=== PATIENT | male | born 1965 | race Caucasian/White ===

== ENCOUNTER 2020-12-31 11:12 | Observation (INO) | payer BC ==
[2020-12-31] MEDS ORDERED: ONDANSETRON 4 MG/2 ML VIAL IVP STA (11:32)
[2020-12-31] MEDS ORDERED: MORPHINE SULFATE 2 MG/ML SYRINGE IVP STA (11:32)
--- NOTE | 2020-12-31 11:32 | ED ---
General Adult HPI - General Chief complaint: Chest Pain Stated complaint: chest pain Time Seen by Provider: 12/31/20 11:12 Source: patient, RN notes reviewed, old records reviewed Mode of arrival: ambulatory Limitations: no limitations - History of Present Illness Initial comments: This is a 55-year-old male who states he has no past medical history. Patient takes no pills rising. Patient states he is a smoker. Patient comes in today because he started having significant left-sided chest pain. Patient states it occurred once about a week ago but it wasn't as bad as it is today. Patient states it started today and it was quite severe it felt like his chest is being squeezed and then radiating down into his abdomen. Patient denies any shortness of breath but he was very diaphoretic when EMS arrived. Patient states he is also extremely nauseated. Patient denies any injury or trauma. Patient denies lightheadedness or dizziness. Patient denies any extremity weakness or numbness. Patient denies headache. - Related Data Home Medications Medication Instructions Recorded Confirmed Ibuprofen [Advil] 400 mg PO Q8HR PRN 12/31/20 12/31/20 Allergies Allergy/AdvReac Type Severity Reaction Status Date / Time No Known Allergies Allergy Verified 12/31/20 12:12 Review of Systems ROS Statement: Those systems with pertinent positive or pertinent negative responses have been documented in the HPI. ROS Other: All systems not noted in ROS Statement are negative. Past Medical History Past Medical History: No Reported History Additional Past Medical History / Comment(s): hx kidney stone, irregular bowel movements, told BP high but no rx History of Any Multi-Drug Resistant Organisms: None Reported Past Surgical History: Orthopedic Surgery Additional Past Surgical History / Comment(s): tendon repair rt arm, arthroscopic knee Past Anesthesia/Blood Transfusion Reactions: No Reported Reaction Past Psychological History: No Psychological Hx Reported Past Alcohol Use History: Occasional Past Drug Use History: None Reported General Exam - General Exam Comments Initial Comments: GENERAL: Patient is well-developed and well-nourished. Patient is nontoxic and well- hydrated and is in mild distress. Patient is diaphoretic ENT: Neck is soft and supple. No significant lymphadenopathy is noted. Oropharynx is clear. Moist mucous membranes. Neck has full range of motion without eliciting any pain. EYES: The sclera were anicteric and conjunctiva were pink and moist. Extraocular movements were intact and pupils were equal round and reactive to light. Eyelids were unremarkable. PULMONARY: Unlabored respirations. Good breath sounds bilaterally. No audible rales rhonchi or wheezing was noted. CARDIOVASCULAR: There is a regular rate and rhythm without any murmurs gallops or rubs. Patient's radial pulse in the left is bounding however the right is very faint ABDOMEN: Patient has slight left lower quadrant abdominal tenderness. No palpable masses noted. No rebound or guarding SKIN: Skin is clear with no lesions or rashes and otherwise unremarkable. NEUROLOGIC: Patient is alert and oriented x3. Cranial nerves II through XII are grossly intact. Motor and sensory are also intact. Normal speech, volume and content. Symmetrical smile. MUSCULOSKELETAL: Normal extremities with adequate strength and full range of motion. No lower extremity swelling or edema. No calf tenderness. LYMPHATICS: No significant lymphadenopathy is noted PSYCHIATRIC: Normal psychiatric evaluation. Limitations: no limitations Course Vital Signs 12/31/20 11:13 Temperature 97.8 F Pulse Rate 59 L Respiratory 22 Rate Blood Pressure 132/82 O2 Sat by Pulse 98 Oximetry Medical Decision Making - Medical Decision Making EKG shows sinus bradycardia [address] interval 164 QRS is 94 QT interval is 454 QTC is 420. Patient has no ST segment elevation. Patient does have slight depression in lead 3 CT of the chest and abdomen to rule out aortic issues was showed no acute abnormalities. I spoke with Dr. William he agreed to admit the patient admitted the patient wrote admitting orders. - Lab Data Result diagrams: 12/31/20 11:32 12/31/20 11:32 Lab Results 12/31/20 12/31/20 12/31/20 Range/Units 11:32 11:32 11:32 WBC 9.3 (3.8-10.6) k/uL RBC 4.97 (4.30-5.90) m/uL Hgb 15.6 (13.0-17.5) gm/dL Hct 45.4 (39.0-53.0) % MCV 91.3 (80.0-100.0) fL MCH 31.3 (25.0-35.0) pg MCHC 34.3 (31.0-37.0) g/dL RDW 13.1 (11.5-15.5) % Plt Count 383 (150-450) k/uL MPV 6.3 Neutrophils % 65 % Lymphocytes % 27 % Monocytes % 3 % Eosinophils % 1 % Basophils % 1 % Neutrophils # 6.0 (1.3-7.7) k/uL Lymphocytes # 2.5 (1.0-4.8) k/uL Monocytes # 0.3 (0-1.0) k/uL Eosinophils # 0.1 (0-0.7) k/uL Basophils # 0.0 (0-0.2) k/uL PT 10.4 (9.0-12.0) sec INR 1.0 (<1.2) APTT 24.0 (22.0-30.0) sec D-Dimer 0.38 (<0.60) mg/L FEU Sodium 137 (137-145) mmol/L Potassium 4.3 (3.5-5.1) mmol/L Chloride 105 (98-107) mmol/L Carbon Dioxide 21 L (22-30) mmol/L Anion Gap 11 mmol/L BUN 17 (9-20) mg/dL Creatinine 0.73 (0.66-1.25) mg/dL Est GFR (CKD-EPI)AfAm >90 (>60 ml/min/1.73 sqM) Est GFR (CKD-EPI)NonAf >90 (>60 ml/min/1.73 sqM) Glucose 138 H (74-99) mg/dL Calcium 9.7 (8.4-10.2) mg/dL Magnesium 1.9 (1.6-2.3) mg/dL Total Bilirubin 0.7 (0.2-1.3) mg/dL AST 26 (17-59) U/L ALT 21 (4-49) U/L Alkaline Phosphatase 81 (38-126) U/L Troponin I (0.000-0.034) ng/mL NT-Pro-B Natriuret Pep pg/mL Total Protein 7.5 (6.3-8.2) g/dL Albumin 4.6 (3.5-5.0) g/dL Urine Color Urine Appearance (Clear) Urine pH (5.0-8.0) Ur Specific [place] (1.001-1.035) Urine Protein (Negative) Urine Glucose (UA) (Negative) Urine Ketones (Negative) Urine Blood (Negative) Urine Nitrite (Negative) Urine Bilirubin (Negative) Urine Urobilinogen (<2.0) mg/dL Ur Leukocyte Esterase (Negative) Urine Opiates Screen (NotDetected) Ur Oxycodone Screen (NotDetected) Urine Methadone Screen (NotDetected) Ur Propoxyphene Screen (NotDetected) Ur Barbiturates Screen (NotDetected) U Tricyclic Antidepress (NotDetected) Ur Phencyclidine Scrn (NotDetected) Ur Amphetamines Screen (NotDetected) U Methamphetamines Scrn (NotDetected) U Benzodiazepines Scrn (NotDetected) Urine Cocaine Screen (NotDetected) U Marijuana (THC) Screen (NotDetected) 12/31/20 12/31/20 12/31/20 Range/Units 11:32 11:32 12:27 WBC (3.8-10.6) k/uL RBC (4.30-5.90) m/uL Hgb (13.0-17.5) gm/dL Hct (39.0-53.0) % MCV (80.0-100.0) fL MCH (25.0-35.0) pg MCHC (31.0-37.0) g/dL RDW (11.5-15.5) % Plt Count (150-450) k/uL MPV Neutrophils % % Lymphocytes % % Monocytes % % Eosinophils % % Basophils % % Neutrophils # (1.3-7.7) k/uL Lymphocytes # (1.0-4.8) k/uL Monocytes # (0-1.0) k/uL Eosinophils # (0-0.7) k/uL Basophils # (0-0.2) k/uL PT (9.0-12.0) sec INR (<1.2) APTT (22.0-30.0) sec D-Dimer (<0.60) mg/L FEU Sodium (137-145) mmol/L Potassium (3.5-5.1) mmol/L Chloride (98-107) mmol/L Carbon Dioxide (22-30) mmol/L Anion Gap mmol/L BUN (9-20) mg/dL Creatinine (0.66-1.25) mg/dL Est GFR (CKD-EPI)AfAm (>60 ml/min/1.73 sqM) Est GFR (CKD-EPI)NonAf (>60 ml/min/1.73 sqM) Glucose (74-99) mg/dL Calcium (8.4-10.2) mg/dL Magnesium (1.6-2.3) mg/dL Total Bilirubin (0.2-1.3) mg/dL AST (17-59) U/L ALT (4-49) U/L Alkaline Phosphatase (38-126) U/L Troponin I <0.012 (0.000-0.034) ng/mL NT-Pro-B Natriuret Pep 99 pg/mL Total Protein (6.3-8.2) g/dL Albumin (3.5-5.0) g/dL Urine Color Yellow Urine Appearance Clear (Clear) Urine pH 7.5 (5.0-8.0) Ur Specific [place] >1.050 H (1.001-1.035) Urine Protein Negative (Negative) Urine Glucose (UA) Negative (Negative) Urine Ketones 2+ H (Negative) Urine Blood Negative (Negative) Urine Nitrite Negative (Negative) Urine Bilirubin Negative (Negative) Urine Urobilinogen <2.0 (<2.0) mg/dL Ur Leukocyte Esterase Negative (Negative) Urine Opiates Screen Detected H (NotDetected) Ur Oxycodone Screen Not Detected (NotDetected) Urine Methadone Screen Not Detected (NotDetected) Ur Propoxyphene Screen Not Detected (NotDetected) Ur Barbiturates Screen Not Detected (NotDetected) U Tricyclic Antidepress Not Detected (NotDetected) Ur Phencyclidine Scrn Not Detected (NotDetected) Ur Amphetamines Screen Not Detected (NotDetected) U Methamphetamines Scrn Not Detected (NotDetected) U Benzodiazepines Scrn Not Detected (NotDetected) Urine Cocaine Screen Not Detected (NotDetected) U Marijuana (THC) Screen Detected H (NotDetected) Disposition Clinical Impression: Chest pain, Abdominal pain, Diminished pulse in upper extremity Disposition: ADMITTED IP TO THIS HOSP Referrals: None,Stated [Primary Care Provider] - 1-2 days Time of Disposition: 13:56
[2020-12-31 11:45] LABS: Basophils % (A) 1 %; Eosinophils # (A) 0.1 k/uL (0-0.7); Eosinophils % (A) 1 %; HCT 45.4 % (39.0-53.0); HGB 15.6 gm/dL (13.0-17.5); Lymphocytes # (A) 2.5 k/uL (1.0-4.8); Lymphocytes % (A) 27 %; MCH 31.3 pg (25.0-35.0); MCHC 34.3 g/dL (31.0-37.0); MCV 91.3 fL (80.0-100.0); Mean Platelet Volume 6.3; Monocytes # (A) 0.3 k/uL (0-1.0); Monocytes % (A) 3 %; Neutrophils % (A) 65 %; Platelet Count 383 k/uL (150-450); RBC 4.97 m/uL (4.30-5.90); RDW 13.1 % (11.5-15.5); WBC 9.3 k/uL (3.8-10.6)
[2020-12-31 11:58] LABS: ALT 21 U/L (4-49); AST 26 U/L (17-59); African American GFR (CKD) >90 (>60 ml/min/1.73 sqM); Albumin 4.6 g/dL (3.5-5.0); Alkaline Phosphatase 81 U/L (38-126); Anion Gap 11 mmol/L; Blood Urea Nitrogen 17 mg/dL (9-20); Calcium 9.7 mg/dL (8.4-10.2); Carbon Dioxide 21 mmol/L (22-30); Chloride 105 mmol/L (98-107); Glucose 138 mg/dL (74-99); Magnesium 1.9 mg/dL (1.6-2.3); Non-African American GFR(CKD) >90 (>60 ml/min/1.73 sqM); Potassium 4.3 mmol/L (3.5-5.1); Sodium 137 mmol/L (137-145); Total Bilirubin 0.7 mg/dL (0.2-1.3); Total Protein 7.5 g/dL (6.3-8.2)
[2020-12-31 12:10] LABS: Prothrombin Time 10.4 sec (9.0-12.0)
--- NOTE | 2020-12-31 12:36 | CT ---
EXAMINATION TYPE: CT angio thor/abd pel aorta DATE OF EXAM: 12/31/2020 INDICATION: chest pain, abd pain, diaphoresis COMPARISON: None CT DLP: 832.9 mGycm CONTRAST: Performed without Oral Contrast and without and with IV Contrast, patient injected with 100 mL of Iso mikayla 370. TECHNIQUE: Axial images at 5 mm thick sections. Reconstructed images in the coronal plane. Delayed images through the kidneys. FINDINGS: CT CHEST: Portion of the thyroid visualized is normal. No suspicious lung nodules or focal infiltrates are present. No enlarged mediastinal or hilar adenopathy is evident. The ascending aorta diameter at the level of the main pulmonary artery is 3.3 cm. The main pulmonary artery diameter at the bifurcation is 2.5 cm. The aorta tapers normally throughout its visualized co urse. No aneurysmal dilatation is evident. No aortic dissections are noted. CT ABDOMEN: Liver: Normal Spleen: Normal Pancreas: Normal Adrenal glands: The adrenal glands are normal. Gallbladder: Normal Kidneys: No masses are evident. No hydronephrosis is present. No cysts are present. Delayed images were obtained through the kidneys, which remain unremarkable. Aorta: Vascular calcification is within the aorta. No dissection or aneurysmal dilatation is evident. There is some prominence of the proximal left common iliac artery measuring 1.7 cm. Inferior vena cava: Normal. CT PELVIS: Loops of bowel within the abdomen and pelvis are normal. Diverticulosis without acute diverticuli tis is within the sigmoid colon. Appendix: Normal as visualized. Urinary bladder: Normal. Genitourinary structures: Prostate appears normal Osseous structures: No suspicious lytic or sclerotic lesions. Degenerative changes are the left femor al head. Small left inguinal hernia may be present. No loops of bowel are involved. IMPRESSIONS: 1. No thoracic or abdominal aortic dissection or aneurysm. 2. There is some prominence of the proximal left common iliac vessel. 3. Diverticulosis without acute diverticulitis.
[2020-12-31 12:49] LABS: Amphetamine Screen,Urine Not Detected (NotDetected); Barbiturate Screen,Urine Not Detected (NotDetected); Benzodiazepines Screen,Urine Not Detected (NotDetected); Cocaine Screen,Urine Not Detected (NotDetected); Methadone Screen, Urine Not Detected (NotDetected); Opiate Screen,Urine Detected (NotDetected); Oxycodone Screen, Urine Not Detected (NotDetected); Phencyclidine Screen,Urine Not Detected (NotDetected); Tricyclic Antidepressant,Urine Not Detected (NotDetected); Urn Cannabinoid Scrn Detected (NotDetected)
[2020-12-31 12:56] LABS: Appearance,Urine Clear (Clear); Bilirubin,Urine Negative (Negative); Blood,Urine Negative (Negative); Color,Urine Yellow; Glucose,Urine (UA) Negative (Negative); Ketones,Urine 2+ (Negative); Leukocyte Esterase,Urine Negative (Negative); Nitrite,Urine Negative (Negative); PH, Urine 7.5 (5.0-8.0); Protein,Urine Negative (Negative); Urobilinogen,Urine <2.0 mg/dL (<2.0)
[2020-12-31 12:57] LABS: Specific Gravity,Urine >1.050 (1.001-1.035)
[2020-12-31] MEDS ORDERED: ONDANSETRON 4 MG/2 ML VIAL IVP PRN (13:09)
[2020-12-31] MEDS: PANTOPRAZOLE 40 MG/10 ML VIAL IVP SCH ×2 (13:14→20:40)
[2020-12-31] MEDS: HYDROmorphone 0.5 MG/0.5 ML SYRINGE IVP PRN ×3 (13:20→20:39)
[2020-12-31] MEDS ORDERED: hydrALAZINE HCL 20 MG/ML 1 ML VIAL IVP STA (13:59)
[2020-12-31] MEDS ORDERED: NITROGLYCERIN SL TABS 0.4 MG TAB SUBLINGUAL PRN (13:59)
--- NOTE | 2020-12-31 15:02 | XR ---
EXAMINATION TYPE: XR chest 1V portable DATE OF EXAM: 12/31/2020 COMPARISON: NONE HISTORY: Chest pain TECHNIQUE: Single frontal view of the chest is obtained. FINDINGS: There is no focal air space opacity, pleural effusion, or pneumothorax seen. The cardiac silhouette size is within normal limits. There are overlying leads. The osseous structures are intac t. IMPRESSION: No acute process.
[2020-12-31 18:22] LABS: ALT 19 U/L (4-49); AST 21 U/L (17-59); African American GFR (CKD) >90 (>60 ml/min/1.73 sqM); Albumin 4.1 g/dL (3.5-5.0); Albumin/Globulin Ratio 1.6; Alkaline Phosphatase 66 U/L (38-126); Anion Gap 5 mmol/L; Blood Urea Nitrogen 14 mg/dL (9-20); C Reactive Protein <0.5 mg/dL (<1.0); Carbon Dioxide 24 mmol/L (22-30); Chloride 106 mmol/L (98-107); Globulin 2.5 g/dL; Glucose 108 mg/dL (74-99); Non-African American GFR(CKD) >90 (>60 ml/min/1.73 sqM); Potassium 4.1 mmol/L (3.5-5.1); Sodium 135 mmol/L (137-145); Total Bilirubin 0.5 mg/dL (0.2-1.3); Total Protein 6.6 g/dL (6.3-8.2)
--- NOTE | 2020-12-31 20:25 | HP ---
HISTORY AND PHYSICAL DATE OF SERVICE: 12/31/2020 CHIEF COMPLAINTS: Chest pain and sweating as well as upper abdominal discomfort. HISTORY OF PRESENT ILLNESS: This 55-year-old gentleman with no significant medical history has had high blood pressure with no treatment, not being followed by any primary physician in the outpatient setting. He was complaining of left-sided chest pain. The patient also felt diaphoretic. The patient had the pain on and off for the last several days. The chest pain increased and the patient came to [facility] and was admitted for further evaluation and treatment. The initial evaluation showed normal CBC and CMP except glucose of 138. The urine drug screen showed THC. Influenza and COVID-19 were negative. The patient had a chest x-ray, which was evaluated personally by me. It showed no acute process. The patient also had CT studies, which the radiologist reported as no free air, scattered diverticula, no signs of acute diverticulitis. No evidence of acute colitis. There was no evidence of dissection. Some prominence of the proximal left common iliac vessel was noted. The patient is admitted for further evaluation and treatment. There is no history of any fever, rigor or chills at this time. The patient did have some nausea, also. PAST MEDICAL HISTORY: History of hypertension, treatment. MEDICATIONS: Advil. ALLERGIES: NONE. FAMILY HISTORY: No history of heart disease or strokes in the family. SOCIAL HISTORY: History of smoking. Occasional alcohol. Occasional THC. REVIEW OF SYSTEMS: ENT: No diminished hearing. No diminished vision. CARDIOVASCULAR SYSTEM: As mentioned earlier. RESPIRATORY SYSTEM: As mentioned earlier. GI: As mentioned earlier. : No dysuria. NERVOUS SYSTEM: No numbness, weakness. ALLERGY/IMMUNOLOGY: No asthma or hay fever. MUSCULOSKELETAL: As mentioned earlier. HEMATOLOGY/ONCOLOGY: No history of anemia. ENDOCRINE: No history of diabetes, hypothyroidism. CONSTITUTIONAL: As mentioned earlier. DERMATOLOGY: Negative. RHEUMATOLOGY: Negative. PSYCHIATRY: As mentioned earlier. PHYSICAL EXAMINATION: Patient is alert and oriented x3.. Pulse 86, blood pressure 153/80, respiration 16, temperature 98.5, pulse ox 94% on room air. HEENT: Conjunctivae normal. Oral mucosa moist. NECK: No jugular venous distention. No carotid bruit. No lymph node enlargement. CARDIOVASCULAR: S1, S2 muffled. No S3. No S4. RESPIRATION: Breath sounds diminished at the bases. No rhonchi. No crackles. ABDOMEN: Soft, nontender. No mass palpable. LEGS: No edema. No swelling. NERVOUS SYSTEM: Higher functions as mentioned earlier. Moves all 4 limbs. No focal motor or sensory deficit. LYMPHATICS: No lymph node palpable in neck, axillae or groin. SKIN: No ulcer, rash, bleeding. JOINTS: No active deforming arthropathy. LAB STUDIES: CBC within normal limits. D-dimer is 0.38. Sodium 137, potassium 4.2. Other labs are noted. Troponins are negative. EKG which I reviewed personally showed sinus bradycardia and no other acute changes. ASSESSMENT: 1. Chest pain for evaluation. Rule out coronary artery disease. 2. Vomiting and chest pain; possibly acute viral syndrome. 3. Sinus bradycardia. 4. Hypertension. 5. Elevated random glucose. 6. History of nicotine dependence. 7. Ketonuria. 8. History of THC. RECOMMENDATIONS AND DISCUSSION: In this 55-year-old gentleman who presented with multiple complex medical issues, we will monitor the patient closely, continue symptomatic treatment. Otherwise, cardiology consultation. Rule out myocardial infarction. Possible stress test. CT scan is noted, showing no acute abnormality. Repeat labs. Further recommendations to follow. See orders for further details. Also recommend close followup with a primary physician in the outpatient setting. MMODL / IJN: [id number] / MTDD
[2021-01-01] MEDS: HYDROmorphone 0.5 MG/0.5 ML SYRINGE IVP PRN ×2 (01:04→08:02)
[2021-01-01] MEDS: PANTOPRAZOLE 40 MG/10 ML VIAL IVP SCH (07:54)
[2021-01-01] MEDS ORDERED: ASPIRIN 325 MG TAB PO SCH (09:00)
[2021-01-01] MEDS ORDERED: LOSARTAN 50 MG TAB PO SCH (09:00)
[2021-01-01 09:47] LABS: Basophils # (A) 0.03 X 10*3/uL (0.00-0.10); Basophils % (A) 0.2 %; Eosinophils # (A) 0.15 X 10*3/uL (0.04-0.35); Eosinophils % (A) 1.2 %; HCT 44.7 % (39.6-50.0); HGB 14.6 g/dL (13.0-17.0); Lymphocytes # (A) 3.71 X 10*3/uL (0.90-5.00); Lymphocytes % (A) 30.8 %; MCH 29.7 pg (27.0-32.0); MCHC 32.7 g/dL (32.0-37.0); Mean Platelet Volume 8.9 fL (9.5-12.2); Monocytes # (A) 0.75 X 10*3/uL (0.20-1.00); Monocytes % (A) 6.2 %; Neutrophils # (A) 7.33 X 10*3/uL (1.80-7.70); Neutrophils % (A) 61.1 %; Platelet Count 322 X 10*3/uL (140-440); RBC 4.91 X 10*6/uL (4.40-5.60); WBC 12.03 X 10*3/uL (4.50-10.00)
[2021-01-01 10:43] LABS: Chol/HDL Ratio 5.64
--- NOTE | 2021-01-01 10:55 | P.CRDCN ---
History of Present Illness History of present illness: HISTORY OF PRESENTING ILLNESS This is a pleasant 55-year-old male past medical history significant for chronic nicotine dependence, smokes one pack per day. He does not follow with a cardiolo gist or regularly with a PCP. We have been asked to see in consultation for chest pain. Patient is seen and examined at bedside. Yesterday morning he states he was dropping office At school. He started to have left-sided chest discomfort that he describes as a fluttering feeling. He states it radiated to his left side of his abdomen. He also states that he's been feeling weak, occasional dizziness, occasional diaphoresis. He states "i have just not been feeling right". He denies associated palpitations, shortness of breath, nausea, vomiting. He denies any specific alleviating or aggravating factors. His chest fluttering is non-exertional. He is a current every day smoker, smokes 1PPD. He does occasionally use marijuana. He currently does not take any medications at home. DIAGNOSTICS EKG reveals sinus bradycardia, heart rate 52, no significant STT wave abnormalities, LVH. EKG this morning with similar findings. Telemetry tracings indicate sinus mechanism no arrhythmia or abnormality seen. Chest xray no acute cardiopulmonary process. Thoracic aorta CT revealed no evidence of dissection or aneurysm, some prominence of the proximal left common iliac vessel. Diverticulosis without any acute diverticulitis. Laboratory reviewed, troponin negative 3, sodium 135, potassium 4.1, BUN 14, serum creatinine 0.6, urine tox screen positive for opiates and marijuana, serum alcohol level negative, viral PCR negative, WBC 12, hemoglobin 14, platelets 322. REVIEW OF SYSTEMS At the time of my exam: CONSTITUTIONAL: Denies fever or chills. CARDIOVASCULAR: +chest fluttering Denies chest pain, shortness of breath, orthopnea, PND RESPIRATORY: Denies cough. GASTROINTESTINAL: +abdominal pain Denies diarrhea, constipation, nausea or vomiting. MUSCULOSKELETAL: Denies myalgias. NEUROLOGIC: Denies numbness, tingling, headacbe or weakness. ENDOCRINE: Denies fatigue, weight change, polydipsia or polyurina. GENITOURINARY: Denies burning, hematuria or urgency with micturation. HEMATOLOGIC: Denies history of anemia or bleeding. PHYSICAL EXAMINATION Blood pressure 166/91 heart rate 80 afebrile and maintaining oxygen saturation 98% on room air CONSTITUTIONAL: No apparent distress. HEENT: Head is normocephalic. Pupils are equal, round. Sclerae anicteric. Mucous membranes of the mouth are moist. No JVD. No carotid bruit. CHEST EXAMINATION: Lungs are clear to auscultation. No chest wall tenderness is noted on palpation or with deep breathing. HEART EXAMINATION: Regular rate and rhythm. S1, S2 heard. No murmurs, gallops or rub. ABDOMEN: Soft, nontender. Positive bowel sounds. EXTREMITIES: 2+ peripheral pulses, no lower extremity edema and no calf tenderness. SKIN: intact NEUROLOGIC EXAMINATION: Patient is awake, alert and oriented x3. ASSESSMENT Chest pain, atypical, acute coronary syndrome has been ruled out Hypertension, Uncontrolled Chronic tobacco use Dyslipidemia PLAN An acute coronary event has been ruled out with no EKG evidence of ischemia and negative cardiac enzymes. Start Losartan 50mg Daily and monitor patient blood pressure Obtain 2D echocardiogram and doppler study to assess cardiac structure and function. TSH within normal limits Lipid panel obtained, patient's current 10 year ASCVD risk 21.9% high will start patient on atorvastatin 40mg daily Check hemoglobin A1c Smoking cessation discussed and highly recommended. Further recommendations based on clinical course. Nurse Practitioner note has been reviewed, I agree with a documented findings and plan of care. Patient was seen and examined. Past Medical History Past Medical History: No Reported History Additional Past Medical History / Comment(s): hx kidney stone, irregular bowel movements, told BP high but no rx History of Any Multi-Drug Resistant Organisms: None Reported Past Surgical History: Orthopedic Surgery Additional Past Surgical History / Comment(s): tendon repair rt arm, arthroscopic knee Past Anesthesia/Blood Transfusion Reactions: No Reported Reaction Past Psychological History: No Psychological Hx Reported Smoking Status: Current every day smoker Past Alcohol Use History: Occasional Past Drug Use History: None Reported Medications and Allergies Home Medications Medication Instructions Recorded Confirmed Type Ibuprofen [Advil] 400 mg PO Q8HR PRN 12/31/20 12/31/20 History Allergies Allergy/AdvReac Type Severity Reaction Status Date / Time No Known Allergies Allergy Verified 12/31/20 12:12 Physical Exam Vitals: Vital Signs Temp Pulse Pulse Resp BP BP Pulse Ox 01/01/21 08:17 97.8 F 80 18 166/91 98 01/01/21 07:26 76 14 01/01/21 02:00 76 01/01/21 01:38 98.4 F 76 14 147/84 95 12/31/20 20:33 98.9 F 81 16 158/69 98 12/31/20 20:00 81 16 12/31/20 16:55 98.5 F 86 16 153/88 94 L 12/31/20 16:00 93 19 140/90 99 12/31/20 15:30 64 13 140/85 99 12/31/20 15:00 63 15 147/87 98 12/31/20 14:30 66 18 146/95 98 12/31/20 14:00 79 14 152/93 98 12/31/20 13:30 81 46 H 180/104 99 12/31/20 11:30 56 L 10 L 190/98 100 12/31/20 11:19 133/82 99 12/31/20 11:13 97.8 F 59 L 22 132/82 98 Intake and Output 12/31/20 01/01/21 01/01/21 22:59 06:59 14:59 Other: Voiding Method Toilet Toilet # Voids 3 3 Weight 81.647 kg Results 01/01/21 05:27 12/31/20 17:58 Cardiac Enzymes 12/31/20 12/31/20 12/31/20 Range/Units 11:32 11:32 14:31 AST 26 (17-59) U/L Troponin I <0.012 <0.012 (0.000-0.034) ng/mL 12/31/20 12/31/20 Range/Units 17:58 17:58 AST 21 (17-59) U/L Troponin I <0.012 (0.000-0.034) ng/mL Coagulation 12/31/20 Range/Units 11:32 PT 10.4 (9.0-12.0) sec APTT 24.0 (22.0-30.0) sec CBC 12/31/20 Range/Units 11:32 WBC 9.3 (3.8-10.6) k/uL RBC 4.97 (4.30-5.90) m/uL Hgb 15.6 (13.0-17.5) gm/dL Hct 45.4 (39.0-53.0) % Plt Count 383 (150-450) k/uL Comprehensive Metabolic Panel 12/31/20 12/31/20 Range/Units 11:32 17:58 Sodium 137 135 L (137-145) mmol/L Potassium 4.3 4.1 (3.5-5.1) mmol/L Chloride 105 106 (98-107) mmol/L Carbon Dioxide 21 L 24 (22-30) mmol/L BUN 17 14 (9-20) mg/dL Creatinine 0.73 0.60 L (0.66-1.25) mg/dL Glucose 138 H 108 H (74-99) mg/dL Calcium 9.7 9.0 (8.4-10.2) mg/dL AST 26 21 (17-59) U/L ALT 21 19 (4-49) U/L Alkaline Phosphatase 81 66 (38-126) U/L Total Protein 7.5 6.6 (6.3-8.2) g/dL Albumin 4.6 4.1 (3.5-5.0) g/dL Current Medications Generic Name Dose Route Start Last Admin Trade Name Freq PRN Reason Stop Dose Admin Hydromorphone HCl 0.5 mg 12/31/20 13:09 01/01/21 08:02 Hydromorphone 0.5 Mg/0.5 Ml Syringe IVP 0.5 mg Q3HR PRN Administration Pain Losartan Potassium 50 mg 01/01/21 09:00 Losartan 50 Mg Tab PO DAILY RUSSEL Ondansetron HCl 4 mg 12/31/20 13:09 Ondansetron 4 Mg/2 Ml Vial IVP ONCE PRN Nausea Pantoprazole Sodium 40 mg 12/31/20 13:15 01/01/21 07:54 Pantoprazole 40 Mg/10 Ml Vial IVP 40 mg BID RUSSEL Administration Intake and Output 12/31/20 01/01/21 01/01/21 22:59 06:59 14:59 Other: Voiding Method Toilet Toilet # Voids 3 3 Weight 81.647 kg 12/31/20 11:32 12/31/20 17:58
--- NOTE | 2021-01-01 11:11 | XR ---
EXAMINATION TYPE: XR chest 1V portable DATE OF EXAM: 01/01/2021 COMPARISON: Chest x-ray 12/31/2020 HISTORY: Chest pain TECHNIQUE: Single frontal view of the chest is obtained. FINDINGS: There is no focal air space opacity, pleural effusion, or pneumothorax seen. The cardiac silhouette size is within normal limits. There are overlying leads. Arthropathy noted at the acromioc lavicular joint on the right. The osseous structures are intact. IMPRESSION: No acute process.
[2021-01-01] MEDS ORDERED: ATORVASTATIN 40 MG TAB PO SCH (11:15)
[2021-01-01 15:11] VITALS: BP 181/83; PULSE 67; RESP 16; TEMP 98.1
--- NOTE | 2021-01-01 15:59 | PN ---
PROGRESS NOTE DATE OF SERVICE: 01/01/2021 This 55-year-old gentleman admitted with left-sided chest pain and left upper abdominal pain had a CT scan of the chest and abdomen. There is no evidence of dissection. The patient also had a repeat chest x-ray which was reviewed personally by me. It showed no acute changes. Past medical history reviewed. Review of systems noted. PHYSICAL EXAMINATION: Patient alert and oriented x3. Pulse is 80, blood pressure 166/91, respiration 18, temperature 97.8, pulse ox 98% on room air. HEENT: Conjunctivae normal. NECK: No jugular venous distention. CARDIOVASCULAR: S1, S2 muffled. RESPIRATION: Breath sounds diminished at the bases. No rhonchi. No crackles. ABDOMEN: Soft, nontender. NERVOUS SYSTEM: No focal deficit. LABS: WBC 5.1, hemoglobin 14.6. Sodium 135. Cholesterol is 237. Drug screen is positive for THC as well as opiates. ASSESSMENT: 1. Chest and upper abdominal pain, possibly pleuritic pain with acute pleurisy. Rule out coronary artery disease. 2. Vomiting, chest pain; possible acute viral syndrome. 3. Sinus bradycardia. 4. Hypertension. 5. Elevated random glucose. 6. History of nicotine dependence. 7. Ketonuria. 8. History of THC. RECOMMENDATIONS AND DISCUSSION: I recommend to continue current medications, continue with symptomatic treatment. Closely follow with Cardiology. The patient will require a stress test, possibly as an outpatient. Chest x-ray reviewed. Guarded prognosis. Further recommendations to follow. MMODL / IJN: [id number] /
--- NOTE | 2021-01-01 18:00 | ECHOF ---
Referral Reason:LV function MEASUREMENTS -------- HEIGHT: 170.2 cm WEIGHT: 81.6 kg BP: IVSd: 1.3 cm (0.6 - 1.1) LVIDd: 3.9 cm (3.9 - 5.3) LVPWd: 1.3 cm (0.6 - 1.1) EDV(Teich): 65 ml IVSs: 1.8 cm LVIDs: 3.2 cm LVPWs: 1.7 cm %IVS Thck: 41 % ESV(Teich): 40 ml EF(Teich): 37 % %FS: 18 % SV(Teich): 24 ml LA Diam: 3.6 cm (2.7 - 3.8) RVIDd: 3.2 cm (< 3.3) LALs A4C: 5.0 cm LAAs A4C: 16.0 cm LAESV A-L A4C: 43 ml LAESV MOD A4C: 38 ml LALs A2C: 5.9 cm LAAs A2C: 19.0 cm LAESV A-L A2C: 52 ml LAESV MOD A2C: 50 ml LAESV(A-L): 51 ml LAESV Index (A-L): 26.57 ml/m Ao Diam: 3.4 cm (2.0 - 3.7) AV Cusp: 1.9 cm (1.5 - 2.6) EPSS: 0.7 cm MV E Hasmukh: 0.67 m/s MV DecT: 318 ms MV Dec York: 2.1 m/s MV A Hasmukh: 0.82 m/s MV E/A Ratio: 0.82 MV PHT: 92 ms AV Vmax: 1.49 m/s AV maxP.90 mmHg TR Vmax: 2.40 m/s TR maxP.04 mmHg RAP: 5.00 mmHg RVSP: 28.04 mmHg MV EF SLOPE: 95.59 mm/s (70 - 150) MV EXCURSION: 16.14 mm (> 18.000) FINDINGS -------- Sinus rhythm. This was a technically good study. The left ventricular size is normal. There is mild concentric left ventricular hypertrophy. Overa ll left ventricular systolic function is normal with, an EF between 60 - 65 %. The right ventricle is normal in size. Normal LA size by volume 22+/-6 ml/m2. The right atrium is normal in size. Interatrial and interventricular septum intact. Aortic valve is trileaflet and is mildly thickened. There is trace mitral regurgitation. Trace tricuspid regurgitation present. Right ventricular systolic pressure is normal at < 35 mmHg. There is no pulmonic regurgitation present. The aortic root size is normal. Normal inferior vena cava with normal inspiratory collapse consistent with estimated right atrial pre ssure of 5 mmHg. There is no pericardial effusion. CONCLUSIONS -------- 1. The left ventricular size is normal. 2. There is mild concentric left ventricular hypertrophy. 3. Overall left ventricular systolic function is normal with, an EF between 60 - 65 %. 4. Aortic valve is trileaflet and is mildly thickened. 5. There is trace mitral regurgitation. 6. Trace tricuspid regurgitation present. 7. There is no pericardial effusion. CERTIFIED NUCLEAR MEDICINE TECHNOLOGIST: CARRINGTON Diaz
[2021-01-01] MEDS ORDERED: PANTOPRAZOLE 40 MG TABLET PO SCH (21:00)
== END 2021-01-01 15:55 | disposition left against medical advice (07) ==
LOC: EC 11:12 → 6NMEDSUR 15:06
PROVIDERS: ADMIT Hospitalist; ATTEND Hospitalist
DX: R07.89 Other chest pain (principal); R11.2 Nausea with vomiting, unspecified; R00.1 Bradycardia, unspecified; I10 Essential (primary) hypertension; Z20.822 Contact with and (suspected) exposure to COVID-19; F17.210 Nicotine dependence, cigarettes, uncomplicated; R82.4 Acetonuria; F12.90 Cannabis use, unspecified, uncomplicated; E78.5 Hyperlipidemia, unspecified; R42 Dizziness and giddiness; R61 Generalized hyperhidrosis; K57.90 Diverticulosis of intestine, part unspecified, without perforation or abscess without bleeding; Z71.6 Tobacco abuse counseling; Z87.442 Personal history of urinary calculi
CPT/HCPCS: 99285; 96376 ×3; 96374; 96375; 36415; 93005; 93306; 85379; 83880; 80061; 80053; 85652; 83735; 84484; 85025 ×2; 85610; 85730; 86140; 81003; 87040; 80306; 80320; 83036; 87636; 71045 ×2; 71275; 74174; G0378 ×2; J2405; J2270; C9113 ×2; J1170 ×2; Q9967

== ENCOUNTER 2021-09-08 21:58 | Emergency (ER) | payer BC ==
[2021-09-08 23:41] VITALS: TEMP 98.7
[2021-09-09] MEDS ORDERED: ONDANSETRON 4 MG/2 ML VIAL IVP STA (00:36)
[2021-09-09] MEDS ORDERED: KETOROLAC 15 MG/ML 1 ML VIAL IVP STA (00:36)
[2021-09-09] MEDS ORDERED: SODIUM CHLORIDE 0.9% 1,000 ML IV STA ×2 (00:36→02:11)
[2021-09-09] MEDS ORDERED: MORPHINE SULFATE 4 MG/ML SYRINGE IV STA (00:36)
--- NOTE | 2021-09-09 00:36 | ED ---
Abdominal Pain HPI - General Chief Complaint: Abdominal Pain Stated Complaint: Abd pain Time Seen by Provider: 09/09/21 00:36 Source: patient, RN notes reviewed, old records reviewed Mode of arrival: ambulatory - History of Present Illness Initial Comments: This is a 56-year-old male DF for evaluation patient presents with abdominal pain and presents just a prior history of diverticulitis. No fevers little dehydration decreased appetite. Patient also having left-sided pain left flank pain. Patient multiple episodes of sweating breakout sweating throughout the course of the day go along with the abdominal pain. One episode of vomiting no other complaints. MD Complaint: abdominal pain -: days(s) Location: LUQ, LLQ Radiation: LUQ, LLQ, suprapubic Migration to: epigastric Severity: moderate Severity scale (1-10): 6 Quality: fullness, sharp Consistency: constant Improves With: nothing Worsens With: eating, bowel movement Associated Symptoms: nausea Treatments Prior to Arrival: other (none) - Related Data Home Medications Medication Instructions Recorded Confirmed Ibuprofen [Advil] 400 mg PO Q8HR PRN 12/31/20 12/31/20 Allergies Allergy/AdvReac Type Severity Reaction Status Date / Time No Known Allergies Allergy Verified 09/08/21 23:41 Review of Systems ROS Statement: Those systems with pertinent positive or pertinent negative responses have been documented in the HPI. ROS Other: All systems not noted in ROS Statement are negative. Past Medical History Past Medical History: No Reported History Additional Past Medical History / Comment(s): hx kidney stone, irregular bowel movements, told BP high but no rx History of Any Multi-Drug Resistant Organisms: None Reported Past Surgical History: Orthopedic Surgery Additional Past Surgical History / Comment(s): tendon repair rt arm, arthroscopic knee Past Anesthesia/Blood Transfusion Reactions: No Reported Reaction Past Psychological History: No Psychological Hx Reported Smoking Status: Current every day smoker Past Alcohol Use History: Occasional Past Drug Use History: None Reported General Exam General appearance: alert, in no apparent distress Head exam: Present: atraumatic, normocephalic, normal inspection Eye exam: Present: normal appearance, PERRL, EOMI. Absent: scleral icterus, conjunctival injection, periorbital swelling ENT exam: Present: normal exam, mucous membranes moist Neck exam: Present: normal inspection. Absent: tenderness, meningismus, lymphadenopathy Respiratory exam: Present: normal lung sounds bilaterally. Absent: respiratory distress, wheezes, rales, rhonchi, stridor Cardiovascular Exam: Present: normal rhythm, tachycardia, normal heart sounds. Absent: systolic murmur, diastolic murmur, rubs, gallop, clicks GI/Abdominal exam: Present: soft, tenderness, guarding (Four-quadrant), normal bowel sounds. Absent: distended, rebound, rigid Extremities exam: Present: normal inspection, full ROM, normal capillary refill. Absent: tenderness, pedal edema, joint swelling, calf tenderness Back exam: Present: normal inspection Neurological exam: Present: alert, oriented X3, CN II-XII intact Psychiatric exam: Present: normal affect, normal mood Skin exam: Present: warm, dry, intact, normal color. Absent: rash Course Vital Signs 09/08/21 09/09/21 23:36 02:10 Temperature 98.7 F Pulse Rate 117 H 78 Respiratory 18 16 Rate Blood Pressure 148/90 163/98 O2 Sat by Pulse 99 98 Oximetry - Reevaluation(s) Reevaluation #1: 09/09/21 00:50 Medical record is reviewed Reevaluation #2: 09/09/21 02:11 Patient feeling improved here in the emergency department Reevaluation #3: 09/09/21 02:12 Patient informed results and questions of also been answered Medical Decision Making - Medical Decision Making 56 male to the emergency department for evaluation of diaphoresis and events of sweating at home today. Computed tomography scan is negative for his abdomen and pelvis is also having left-sided abdominal pain which she relates prior diverticulitis, no current diverticulitis. Patient can be discharged home - Lab Data Result diagrams: 09/09/21 00:54 09/09/21 00:54 Lab Results 09/09/21 09/09/21 09/09/21 Range/Units 00:54 00:54 00:54 WBC 12.1 H (3.8-10.6) k/uL RBC 5.38 (4.30-5.90) m/uL Hgb 16.3 (13.0-17.5) gm/dL Hct 49.0 (39.0-53.0) % MCV 91.2 (80.0-100.0) fL MCH 30.3 (25.0-35.0) pg MCHC 33.2 (31.0-37.0) g/dL RDW 12.4 (11.5-15.5) % Plt Count 186 (150-450) k/uL MPV 7.1 Neutrophils % 74 % Lymphocytes % 18 % Monocytes % 6 % Eosinophils % 1 % Basophils % 0 % Neutrophils # 8.9 H (1.3-7.7) k/uL Lymphocytes # 2.2 (1.0-4.8) k/uL Monocytes # 0.7 (0-1.0) k/uL Eosinophils # 0.1 (0-0.7) k/uL Basophils # 0.1 (0-0.2) k/uL Sodium 138 (137-145) mmol/L Potassium 4.1 (3.5-5.1) mmol/L Chloride 102 (98-107) mmol/L Carbon Dioxide 24 (22-30) mmol/L Anion Gap 12 mmol/L BUN 18 (9-20) mg/dL Creatinine 0.79 (0.66-1.25) mg/dL Est GFR (CKD-EPI)AfAm >90 (>60 ml/min/1.73 sqM) Est GFR (CKD-EPI)NonAf >90 (>60 ml/min/1.73 sqM) Glucose 120 H (74-99) mg/dL Plasma Lactic Acid Mateus 1.3 (0.7-2.0) mmol/L Calcium 9.5 (8.4-10.2) mg/dL Total Bilirubin 1.1 (0.2-1.3) mg/dL AST 28 (17-59) U/L ALT 23 (4-49) U/L Alkaline Phosphatase 67 (38-126) U/L Total Protein 8.7 H (6.3-8.2) g/dL Albumin 4.9 (3.5-5.0) g/dL Amylase 66 (30-110) U/L Lipase 71 (23-300) U/L - Radiology Data Radiology results: report reviewed (CT head and pelvis is negative for acute disease), image reviewed Disposition Clinical Impression: Abdominal colic, Fever, Viral syndrome, Abdominal pain Disposition: HOME SELF-CARE Condition: Good Instructions (If sedation given, give patient instructions): Fever in Adults (ED), Viral Syndrome (ED) Is patient prescribed a controlled substance at d/c from ED?: No Referrals: Ole Ellison DO [Primary Care Provider] - 1-2 days
[2021-09-09 01:07] LABS: Basophils # (A) 0.1 k/uL (0-0.2); Basophils % (A) 0 %; Eosinophils # (A) 0.1 k/uL (0-0.7); Eosinophils % (A) 1 %; HGB 16.3 gm/dL (13.0-17.5); Lymphocytes # (A) 2.2 k/uL (1.0-4.8); Lymphocytes % (A) 18 %; MCH 30.3 pg (25.0-35.0); MCHC 33.2 g/dL (31.0-37.0); MCV 91.2 fL (80.0-100.0); Mean Platelet Volume 7.1; Monocytes # (A) 0.7 k/uL (0-1.0); Monocytes % (A) 6 %; Neutrophils # (A) 8.9 k/uL (1.3-7.7); Neutrophils % (A) 74 %; Platelet Count 186 k/uL (150-450); RBC 5.38 m/uL (4.30-5.90); RDW 12.4 % (11.5-15.5); WBC 12.1 k/uL (3.8-10.6)
[2021-09-09 01:12] LABS: ALT 23 U/L (4-49); AST 28 U/L (17-59); African American GFR (CKD) >90 (>60 ml/min/1.73 sqM); Albumin 4.9 g/dL (3.5-5.0); Alkaline Phosphatase 67 U/L (38-126); Amylase 66 U/L (30-110); Anion Gap 12 mmol/L; Blood Urea Nitrogen 18 mg/dL (9-20); Calcium 9.5 mg/dL (8.4-10.2); Carbon Dioxide 24 mmol/L (22-30); Chloride 102 mmol/L (98-107); Glucose 120 mg/dL (74-99); Lipase 71 U/L (23-300); Non-African American GFR(CKD) >90 (>60 ml/min/1.73 sqM); Sodium 138 mmol/L (137-145); Total Bilirubin 1.1 mg/dL (0.2-1.3); Total Protein 8.7 g/dL (6.3-8.2)
[2021-09-09 01:27] LABS: Potassium 4.1 mmol/L (3.5-5.1)
--- NOTE | 2021-09-09 01:56 | CT ---
EXAMINATION TYPE: CT abdomen pelvis w con DATE OF EXAM: 09/09/2021 COMPARISON: 11/04/2009 HISTORY: PAIN CT DLP: 913.5 mGycm Automated exposure control for dose reduction was used. CONTRAST: Performed with IV Contrast, patient injected with 100 mL of Isovue 300. Images obtained from the diaphragm to the floor the pelvis with IV contrast. The lung bases are clear. No pleural effusion. Heart size is normal. No pericardial effusion. Liver spleen stomach pancreas gallbladder appear intact. The bile ducts are not dilated. There is no adrenal mass. Kidneys show satisfactory contrast opacification. There is no hydronephrosi s. Delayed images show normal renal excretion. There is no retroperitoneal adenopathy. Appendix is po sterior and appears normal. The bladder distends smoothly. There is no internal hernia. No free fluid in the pelvis. No evidence of a pelvic mass. There are some large bowel diverticula. No diverticulit is. There is no mesenteric edema. No ascites or free air. No bowel obstruction. The lumbar vertebrae have normal alignment. There is multilevel vacuum disc. There is spur formation. No compression fracture. The femoral heads show left-sided avascular necrosis and severe hip joint space narrowing. There is osteosclerosis in the left femoral head. Right femoral head appears fairly normal. Bony pelvis is int act. IMPRESSION: No acute abnormality of the abdomen and pelvis. 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 Normal appendix. There is some mild colonic diverticulosis. No diverticulitis.
[2021-09-09 02:10] VITALS: BP 163/98; PULSE 78; RESP 16
[2021-09-09] MEDS ORDERED: ACETAMINOPHEN TAB 500 MG TAB PO STA (02:11)
[2021-09-09] MEDS ORDERED: ACET/COD 300 MG/30 MG STARTER PACK 6 TAB BTL PO STA (02:20)
[2021-09-09] MEDS ORDERED: IBUPROFEN 600 MG STARTER PACK 4 TAB BTL PO STA (02:20)
[2021-09-09] MEDS ORDERED: ONDANSETRON 4 MG ODT STARTER PACK 2 TAB BTL PO STA (02:20)
== END 2021-09-09 03:02 | disposition home or self-care (01) ==
LOC: EC 21:58
DX: B34.9 Viral infection, unspecified (principal); K57.30 Diverticulosis of large intestine without perforation or abscess without bleeding; F17.200 Nicotine dependence, unspecified, uncomplicated
CPT/HCPCS: 36415; 80053; 82150; 83605; 83690; 85025; 74177; 99284; 96374; 96375; 96361; J2270; J2405; J1885; S0119; Q9967

== ENCOUNTER → 2021-10-05 | Outpatient (CLI) | payer BC ==
[2021-10-05 12:54] LABS: Partial Thromboplastin Time 25.8 sec (22.0-30.0)
[2021-10-05 17:56] LABS: Albumin 4.4 g/dL (3.8-4.9); Albumin/Globulin Ratio 1.64 (1.60-3.17); Anion Gap 6.8 mmol/L (10.00-18.00); BUN/Creat Ratio 17.03 Ratio (12.00-20.00); Blood Urea Nitrogen 14.2 mg/dL (9.0-27.0); Calcium 9.6 mg/dL (8.7-10.3); Carbon Dioxide 27.3 mmol/L (20.0-27.5); Globulin 2.7 g/dL (1.6-3.3); Non-African American GFR(CKD) 97.5 (60.0-200.0); Potassium 4.9 mmol/L (3.5-5.5); Total Bilirubin 0.4 mg/dL (0.30-1.20); Total Protein 7.1 g/dL (6.2-8.2)
[2021-10-05 17:58] LABS: HCT 45.2 % (39.6-50.0); HGB 14.7 g/dL (13.0-17.0); MCH 29.8 pg (27.0-32.0); MCHC 32.5 g/dL (32.0-37.0); MCV 91.7 fL (80.0-97.0); Mean Platelet Volume 8.8 fL (9.5-12.2); NRBC Per 100 WBC 0 /100 WBCS (0.0-0.0); Platelet Count 312 X 10*3/uL (140-440); RBC 4.93 X 10*6/uL (4.40-5.60); RDW 12.8 % (11.5-14.5); WBC 5.56 X 10*3/uL (4.50-10.00)
[2021-10-05 21:00] LABS: Appearance,Urine Clear (Clear); Bilirubin,Urine Negative (Negative); Blood,Urine Negative (Negative); Color,Urine Yellow (Yellow); Ketones,Urine Negative (Negative); Nitrite,Urine Negative (Negative); PH, Urine 6.5 (5.0-8.0); Specific Gravity,Urine 1.018 (1.001-1.030); Urobilinogen,Urine 0.2 (0.2,1.0)
[2021-10-06 00:07] LABS: Prothrombin Time 10.5 sec (9.0-12.0)
== END | disposition home or self-care (01) ==
LOC: LABPAT 11:45
PROVIDERS: ATTEND Orthopaedic Surgery
DX: Z01.812 Encounter for preprocedural laboratory examination (principal)
CPT/HCPCS: 80053; 81003; 85027; 85610; 85730; 87070; 93005

== ENCOUNTER 2021-10-16 06:22 | Observation (INO) | payer BC ==
[~2021-10-16 06:22] MED LIST: ACETAMINOPHEN TAB 500 MG TAB PO PRN; DEXAMETHASONE SOD PHOSPHATE 10 MG/ML 1 ML VIAL IV PRN; DOCUSATE 100 MG CAP PO PRN; FAMOTIDINE 20 MG/2 ML VIAL IVP PRN; KETOROLAC 15 MG/ML 1 ML VIAL IVP PRN; ONDANSETRON 4 MG/2 ML VIAL IVP PRN; TRANEXAMIC ACID IN NACL,ISO-OS 1,000 MG in SALINE 1 100ML.BAG IVPB PRN; oxyCODONE ER 10 MG TAB.ER.12H PO PRN
[2021-10-16] MEDS ORDERED: LACTATED RINGERS 1,000 ML IV ONE (07:15)
[2021-10-16] MEDS ORDERED: MIDAZOLAM 2 MG/2 ML VIAL IVP ONE (07:21)
[2021-10-16] MEDS ORDERED: ROCURONIUM 10 MG/ML (5 ML VIAL) IV ONE (07:35)
[2021-10-16] MEDS ORDERED: SUCCINYLCHOLINE CHLORIDE 100 MG/5 ML SYR IV ONE (07:35)
[2021-10-16] MEDS ORDERED: TRANEXAMIC ACID IN NACL,ISO-OS 1,000 MG/100 ML BAG ONE (07:35)
[2021-10-16] MEDS ORDERED: GLYCOPYRROLATE 0.2 MG/ML 2 ML VIAL ONE (07:35)
[2021-10-16] MEDS ORDERED: HYDROmorphone (PF) 1 MG/ML ONE (07:35)
[2021-10-16] MEDS ORDERED: fentaNYL (PF) 50 MCG/ML 2 ML AMP ONE (07:35)
[2021-10-16] MEDS ORDERED: LIDOCAINE 2% INJ 20 MG/ML (2 ML VIAL) ONE (07:35)
[2021-10-16] MEDS ORDERED: NEOSTIGMINE 1 MG/ML 10 ML VIAL ONE (07:35)
[2021-10-16] MEDS ORDERED: PROPOFOL 10 MG/ML 20 ML VIAL IV ONE (07:35)
[2021-10-16] MEDS ORDERED: ceFAZolin 1,000 MG in SODIUM CHLORIDE 0.9% 1,000 ML IRRIGATION ONE (08:20)
[2021-10-16] MEDS: ROPIVACAINE/EPI/CLONIDINE/KET 50 ML SYRINGE MISCELLANE PRN ×2 (08:21→09:28)
[2021-10-16] MEDS ORDERED: ONDANSETRON 4 MG/2 ML VIAL IVP ONE (09:49)
[2021-10-16] MEDS ORDERED: MIDAZOLAM 2 MG/2 ML VIAL IV PRN (09:49)
[2021-10-16] MEDS ORDERED: DEXAMETHASONE SOD PHOSPHATE 4 MG/ML 1 ML VIAL IV ONE (09:49)
[2021-10-16] MEDS ORDERED: HYDROmorphone 0.5 MG/0.5 ML SYRINGE IVP PRN ×3 (09:49→10:07)
[2021-10-16] MEDS ORDERED: LIDOCAINE 1% (10MG/ML) FOR IV START INTRADERMA PRN (09:49)
[2021-10-16] MEDS ORDERED: NALOXONE 0.4 MG/ML 1 ML VIAL IV PRN (10:07)
[2021-10-16] MEDS ORDERED: hydrOXYzine pamoate 25 MG CAP PO PRN (10:07)
[2021-10-16] MEDS ORDERED: ONDANSETRON 4 MG/2 ML VIAL IVP PRN (10:07)
[2021-10-16] MEDS ORDERED: HYDROcodone/APAP 5-325MG 1 EACH TAB PO PRN (10:07)
[2021-10-16] MEDS ORDERED: HYDROmorphone 0.5 MG/0.5 ML SYRINGE IVP ONE (10:13)
--- NOTE | 2021-10-16 10:13 | P.OP ---
Date of Procedure: 10/16/21 Preoperative Diagnosis: 1. Severe left hip osteoarthritis 2. History of cigarette smoking Postoperative Diagnosis: Same Procedure(s) Performed: Left direct anterior total hip arthroplasty Implants: 1. Minerva Trident II 52 mm cup 2. Minerva insignia size #4 high offset femoral stem 3. Biolox delta ceramic femoral head 36 mm, -5 mm neck Anesthesia: GETA Surgeon: Juan José Paez Oil Burner Repairer #1: Griselda Alvarez Estimated Blood Loss (ml): 200 IV fluids (ml): 1,200 Pathology: other (Femoral head to pathology) Condition: stable Disposition: PACU Indications for Procedure: I had a long discussion with the patient in the office on the potential risks and complications of an elective total hip replacement through a direct anterior approach. Risks discussed include, but are certainly not limited to, risks from anesthesia, superficial infection requiring local wound care or antibiotics, deep christina-prosthetic joint infection and the treatment required to eradicate infection, intraoperative fracture, postoperative periprosthetic fracture, damage to local blood vessels or nerves particularly the lateral femoral cutaneous nerve, delayed wound healing requiring local wound care or possibly surgical debridement, hip dislocation, leg length discrepancy, soft tissue irritation around the total hip implant such as iliopsoas tendinitis or trochanteric bursitis, wear and osteolysis from the implants, squeaking or audible noises, groin pain, thigh pain, heterotopic ossification, stiffness, aseptic loosening of the implants, dissatisfaction with surgical outcome, need for revision surgery, DVT, PE, swelling of the operative extremity, acute coronary event, stroke, failure to thrive, and possibly loss of life or limb. The patient understands that while these are the most common complications after an elective hip replacement there are certainly other less common complications possible. They were given ample time to ask questions regarding the potential complications of a hip replacement. The patient also has a history of cigarette smoking. We discussed this at length. The patient understands that he is at increased risk of having a complication particularly delayed wound healing and infection. The patient states that his hip pain is severe and incapacitating and he is unable to quit smoking. Due to the severity of his arthritis and amount of pain I agreed to proceed with an elective total hip replacement. I strongly urged the patient to quit smoking. He accepted the elevated risk and acknowledged my concerns. Following our discussion the patient provided their verbal and written consent to go forward with an elective total hip replacement. Description of Procedure: The patient was identified in the preoperative holding area and the correct hip was marked with my initials. I reviewed the procedure and consent with the patient. All of their questions were answered. The patient was then brought back into the operating room by anesthesia. While on the [facility] anesthesia was administered by the anesthesia team. Preoperative antibiotics and tranexamic acid were also given. After the patient was under anesthesia I examined their ankles to determine their preoperative leg length discrepancy. The skin over the anterior aspect of the hip was shaved to remove hair over the site of planned incision. Both feet and ankles were padded with webril and boots for the [place] were applied. The patient was then carefully transferred onto the [place] table. A perineal post was immediately placed. The arms were placed on arm holders and were well-padded. Both boots were secured to the spars on the [place] table. The patient was positioned so that the pelvis was centered over the post. Nonsterile drapes were applied. A timeout was performed identifying the correct patient, operative extremity, and procedure. At this point fluoroscopy was brought in to take preoperative images of the pelvis and operative hip. Using the standing AP pelvis from the office as a template, a comparable image was obtained with fluoroscopy. A metallic bar was used to create a bi-ischial line for use as a reference to leg length adjustments during the procedure. Global offset was also measured on both the operative and nonoperative leg. Fluoroscopy was then brought out and a pre-scrub using a chlorhexidine scrub brush was performed. The operative limb was then prepped and draped in the standard sterile fashion. An anterior longitudinal incision was made lateral and distal to the ASIS. The skin and subcutaneous tissues were incised sharply. The underlying tensor fascia was identified and incised in its midportion. The fascia was dissected free from the underlying muscle and the muscle belly was retracted. A blunt tipped cobra retractor was placed over the superior neck under the muscle fibers of the gluteus minimus. The deep enveloping fascia of the tensor was incised. The anterior leash of vessels were then identified and cauterized. The fascia between the rectus and the capsule was then incised and the pre-capsular fat was excised. A second Cobra was placed inferior to the neck. The interval between the rectus and iliocapsularis and the hip capsule was developed and a retractor was placed carefully over the anterior rim of the acetabulum. A T-shaped anterior capsulotomy was performed. The superior capsular leaflet was left in place in the inferior capsular flap was excised. The Cobra retractors were placed intracapsularly. We then made a femoral neck osteotomy according to preoperative and intraoperative templating and confirmed the level of the osteotomy using fluoroscopic imaging. The femoral head was removed, passed off to the back table, and sized. The superior capsular flap was excised. Retrac tors were placed circumferentially exposing the acetabulum. We then circumferentially debrided the acetabulum free of labrum and osteophytes. The pulvinar was removed to fully visualize the cotyloid fossa. We then sequentially reamed to achieve peripheral fit and excellent bleeding subchondral bone. I took care not to fully medialize the socket to prevent losing offset. The socket was thoroughly irrigated. The acetabular component was impacted into the appropriate position using fluoroscopy to guide version, inclination, and depth of insertion taking care to have a comparable image of the AP pelvis to the standing image taken in the office. An excellent press-fit was achieved and final position was confirmed using fluoroscopy. The press fit was augmented with bony cancellus dome screws. The liner was then impacted into the socket. After the socket and liner were fully in place there was a large anterior inferior osteophyte. This was removed first by scoring the osteophyte with an osteotome to prevent fracture propagation of loosening of the cup followed by removing the osteophyte carefully. Attention was then turned to the femur. The remnant dorsal lateral capsule was excised. The short external rotators were visible and protected. A bone hook was used to confirm appropriate translation of the trochanter away from the acetabulum. The leg was then extended and adducted and the bone hook was used to elevate the femur for broaching. A box osteotome and blunt tipped canal sound was then utilized to gain access to the femoral canal. We then sequentially broached the femur in appropriate anteversion until excellent torsional stability was achieved. The neck cut was brought flush to the trial broach with a calcar planar. A trial neck and head were then placed onto the broach and the hip was atraumatically reduced under direct visualization. External rotation to 90 was performed to assess stability. Fluoroscopy was brought in. An AP and lateral fluoroscopic image of the proximal femur was obtained to assess position and fill of the trial broach. An AP of the pelvis was then obtained and matched to the preoperative image taken. A bi-ischial bar was then placed and measurements were taken to assess changes in length and offset. The hip was then carefully dislocated, the proximal femur was exposed, and the trial implants were removed. The wound and proximal femur was thoroughly irrigated using sterile saline and pulsatile lavage. The final femoral implant was dispensed and gently tapped into place generating an excellent press-fit. The trunnion was cleansed and the final head was tapped into place to engage the Martínez taper. The acetabulum was irrigated and visualized to be free of debris. The hip was carefully reduced. Stability was checked clinically with external rotation to 90 and there was no evidence of instability. Final fluoroscopic images were taken. The wound was then thoroughly irrigated and soaked with a dilute Betadine rinse for 3 minutes. 3 L of sterile saline was irrigated through the wound using pulsatile lavage. Local anesthetic cocktail was injected into the soft tissues around the surgical field. A deep drain was placed. The wound was then closed in layers. A sterile dressing was placed over the surgical incision and drain site. The drapes were taken down and the patient was carefully transferred off of the [place] table. Following removal of the boots the leg lengths felt acceptable. The patient was then taken to recovery room having tolerated the procedure well. Griselda Alvarez PA-C was required as a skilled assistant laboratory director for patient positioning, surgical exposure, retraction, placement of implants, and closure of the surgical wound. PLAN: The patient can weight-bear as tolerated on the operative extremity. 2 doses of postoperative antibiotics. DVT prophylaxis with aspirin 81 mg twice a day based on preoperative risk stratification. Physical therapy for gait training. Discontinue drain postoperative day #1 if output is less than 100 mL per shift.
[2021-10-16] MEDS: MEPERIDINE 50 MG/ML SYRINGE IVP ONE ×2 (10:18→10:56)
[2021-10-16] MEDS: LACTATED RINGERS 1,000 ML IV SCH (10:20)
--- NOTE | 2021-10-16 10:34 | FL ---
Fluoroscopy HISTORY: Anterior hip replacement 56 seconds fluoroscopy time supplied to the referring clinician. 7 intraoperative C-arm images docum ent the procedure. See dictated report from orthopedic surgery.
[2021-10-16] MEDS: HYDROmorphone 1 MG/ML 1 ML SYRINGE IVP PRN ×3 (13:33→20:47)
--- NOTE | 2021-10-16 17:26 | P.CONS ---
History of Present Illness - Reason for Consult Consult date: 10/16/21 - History of Present Illness Chief complaint: Left hip pain Consulting physician: Orthopedic surgery Reason for consult: Medical management History of present illness: 56-year-old male with past medical history significant for hypertension that improved after the patient quit drinking alcohol. History also of dyslipidemia and nicotine addiction. Patient stated that he is not in any pressure medication anymore. He still continues to smoke. Sounds physician hospitalist consulted for medical management. The patient denies any chest pain or shortness of breath. The patient denies nausea vomiting or abdominal pain. Patient had some urinary retention after voiding more than 100 mL postoperatively. His pain in the left hip is well-controlled with IV premedication. Review of systems: All 14 review of systems evaluated and all negative except for above. Physical examination: General: non toxic, no distress, appears at stated age Derm: warm, dry Head: atraumatic, normocephalic, symmetric Eyes: EOMI, no lid lag, anicteric sclera Mouth: no lip lesion, mucus membranes moist Cardiovascular: S1S2 reg, no murmur, positive posterior tibial pulse bilateral, Lungs: CTA bilateral, no rhonchi, no rales , no accessory muscle use Abdominal: soft, nontender to palpation, no guarding, no appreciable organomegaly Ext: no gross muscle atrophy, no edema, no contractures Neuro: CN II-XI grossly intact, no focal neuro deficits Psych: Alert, oriented, appropriate affect Assessment and plan: #Status post left total hip arthroplasty postoperative day #0 -Pain control, DVT prophylaxis per primary team -PT/OT #History of hypertension -Patient currently off medications for blood pressure well controlled. #Ongoing tobacco abuse -She was counseled regarding smoking cessation #DVT perplexes primary team Past Medical History Past Medical History: Hypertension, Osteoarthritis (OA) Additional Past Medical History / Comment(s): hx kidney stone, diverticulitis, took BP med in the past but not needed currently per pt. History of Any Multi-Drug Resistant Organisms: None Reported Past Surgical History: Orthopedic Surgery Additional Past Surgical History / Comment(s): tendon repair rt arm, arthroscopic knee surg. Past Anesthesia/Blood Transfusion Reactions: No Reported Reaction Past Psychological History: No Psychological Hx Reported Smoking Status: Current every day smoker Past Alcohol Use History: Occasional Additional Past Alcohol Use History / Comment(s): 1ppd for 25 yrs. Past Drug Use History: Marijuana Additional Drug Use History / Comment(s): occasional use - Past Family History Mother Family Medical History: No Reported History Medications and Allergies Home Medications Medication Instructions Recorded Confirmed Type HYDROcodone/APAP 7.5-325MG [[place] 1 tab PO Q6HR PRN 10/14/21 10/16/21 History 7.5-325] Prochlorperazine [Compazine] 10 mg PO Q8H PRN 10/14/21 10/16/21 History Aspirin 81 mg PO BID 30 Days #60 tab 10/16/21 Rx Diclofenac Sodium [Voltaren] 75 mg PO BID 30 Days #60 tab 10/16/21 Rx Docusate [Colace] 100 mg PO BID #60 capsule 10/16/21 Rx HYDROcodone/APAP 5-325MG [[place] 1 - 2 tab PO Q6HR PRN #40 tab 10/16/21 Rx 5-325] Omeprazole 40 mg PO DAILY 30 Days #30 cap 10/16/21 Rx Allergies Allergy/AdvReac Type Severity Reaction Status Date / Time No Known Allergies Allergy Verified 10/16/21 06:51 Physical Exam Vitals: Vital Signs Temp Pulse Pulse Pulse Resp BP Pulse Ox 10/16/21 14:07 73 127/82 99 10/16/21 13:53 63 121/71 98 10/16/21 13:37 65 134/79 99 10/16/21 13:22 65 128/84 100 10/16/21 13:07 55 L 135/83 99 10/16/21 12:53 70 140/84 99 10/16/21 12:38 92 111/78 100 10/16/21 12:23 60 132/71 100 10/16/21 12:07 59 L 131/80 100 10/16/21 11:52 97.7 F 74 18 125/77 100 10/16/21 11:34 72 16 147/77 100 10/16/21 11:19 76 16 148/73 100 10/16/21 11:04 80 16 136/73 100 10/16/21 10:45 86 16 128/64 100 10/16/21 10:33 76 16 144/68 99 10/16/21 10:21 68 16 157/74 99 10/16/21 10:03 97.1 F L 81 18 170/70 100 10/16/21 06:50 97.3 F L 70 16 146/82 98 Intake and Output 10/16/21 10/16/21 10/16/21 06:59 14:59 22:59 Intake Total 1101 Output Total 200 Balance 901 Intake: IV 1101 Output: Estimated Blood Loss 200 Other: Weight 76.4 kg 76.4 kg
[2021-10-16] MEDS ORDERED: NICOTINE 14MG/24HR PATCH TRANSDERM STA (19:54)
[2021-10-16] MEDS: ASPIRIN 81 MG PO SCH (20:32)
[2021-10-16] MEDS ORDERED: SENNOSIDES-DOCUSATE SODIUM 1 EACH TAB PO SCH (21:00)
[2021-10-16] MEDS: HYDROcodone/APAP 5-325MG 1 EACH TAB PO PRN (23:44)
[2021-10-17] MEDS: HYDROmorphone 1 MG/ML 1 ML SYRINGE IVP PRN ×3 (02:43→09:16)
[2021-10-17] MEDS: HYDROcodone/APAP 5-325MG 1 EACH TAB PO PRN (07:56)
[2021-10-17] MEDS: ASPIRIN 81 MG PO SCH (07:56)
[2021-10-17 08:01] VITALS: BP 122/68; PULSE 86; RESP 17; TEMP 98.1
[2021-10-17 08:41] LABS: Basophils # (A) 0.03 X 10*3/uL (0.00-0.10); Basophils % (A) 0.2 %; Eosinophils # (A) 0.01 X 10*3/uL (0.04-0.35); Eosinophils % (A) 0.1 %; HCT 37.7 % (39.6-50.0); HGB 12.3 g/dL (13.0-17.0); Immature Grans, Automated 0.4 %; Lymphocytes # (A) 3.23 X 10*3/uL (0.90-5.00); Lymphocytes % (A) 19.5 %; MCH 29.6 pg (27.0-32.0); MCHC 32.6 g/dL (32.0-37.0); MCV 90.6 fL (80.0-97.0); Monocytes # (A) 1.36 X 10*3/uL (0.20-1.00); Monocytes % (A) 8.2 %; NRBC Per 100 WBC 0 /100 WBCS (0.0-0.0); Neutrophils # (A) 11.86 X 10*3/uL (1.80-7.70); Neutrophils % (A) 71.6 %; Platelet Count 316 X 10*3/uL (140-440); RBC 4.16 X 10*6/uL (4.40-5.60); WBC 16.55 X 10*3/uL (4.50-10.00)
--- NOTE | 2021-10-17 10:02 | P.DS ---
Providers Date of admission: 10/16/21 22:09 Expected date of discharge: 10/17/21 Attending physician: Juan José Paez Consults: 10/16/21 10:07 Consult Physician Routine Consulting Provider: Abner Hart Consult Reason/Comments: medical management Do you want consulting provider notified?: Yes Primary care physician: Ole Ellison - Discharge Diagnosis(es) (1) Status post left hip replacement Current Visit: Yes Status: Acute (2) Osteoarthritis of left hip Current Visit: Yes Status: Acute Hospital Course: This is a 56-year-old male with known history of degenerative arthritis of the left hip. The patient presents for evaluation. After discussion and consideration patient elects to proceed with left direct anterior total hip arthroplasty. The patient is seen preoperatively by his primary care physician and cleared for surgery. Patient is admitted to [facility] on 10/16/2021 for left direct anterior total hip arthroplasty. The procedures performed without complication or seq uelae. The patient is doing well postoperatively. Labs and vital signs are stable on day of discharge. On day of discharge patient's hip dressing is clean and dry. Hemovac drain removed with difficulty and tip intact. There is no drainage noted at this time. There is minimal soft tissue swelling to the hip and thigh. Patient has full foot and ankle motion without difficulty or pain. Neurovascular status to the left lower extremity is intact. Patient is discharged to home in good condition. Pertinent Studies: Laboratory Tests 10/17/21 05:49 WBC 16.55 H RBC 4.16 L Hgb 12.3 L Hct 37.7 L Patient Condition at Discharge: Stable Plan - Discharge Summary Discharge Rx Participant: Yes New Discharge Prescriptions: New HYDROcodone/APAP 5-325MG [[place] 5-325] 1 - 2 tab PO Q6HR PRN #40 tab PRN Reason: Pain Omeprazole 40 mg PO DAILY 30 Days #30 cap Diclofenac Sodium [Voltaren] 75 mg PO BID 30 Days #60 tab Aspirin 81 mg PO BID 30 Days #60 tab Docusate [Colace] 100 mg PO BID #60 capsule No Action HYDROcodone/APAP 7.5-325MG [[place] 7.5-325] 1 tab PO Q6HR PRN PRN Reason: Pain Prochlorperazine [Compazine] 10 mg PO Q8H PRN PRN Reason: Nausea Discharge Medication List HYDROcodone/APAP 7.5-325MG [[place] 7.5-325] 1 tab PO Q6HR PRN 10/14/21 [History] Prochlorperazine [Compazine] 10 mg PO Q8H PRN 10/14/21 [History] Aspirin 81 mg PO BID 30 Days #60 tab 10/16/21 [Rx] Diclofenac Sodium [Voltaren] 75 mg PO BID 30 Days #60 tab 10/16/21 [Rx] Docusate [Colace] 100 mg PO BID #60 capsule 10/16/21 [Rx] HYDROcodone/APAP 5-325MG [[place] 5-325] 1 - 2 tab PO Q6HR PRN #40 tab 10/16/21 [Rx] Omeprazole 40 mg PO DAILY 30 Days #30 cap 10/16/21 [Rx] Follow up Appointment(s)/Referral(s): [facility] [NON-STAFF] - As Needed (walker) [facility], [NON-STAFF] - As Needed Juan José Paez MD [Medical Doctor] - 2 Weeks Activity/Diet/Wound Care/Special Instructions: Weight bear as tolerated on operative extremity with a walker. Keep operative dressing intact until follow-up appointment. Call the office if your dressing becomes saturated or falls off. Take pain medications as prescribed. Take aspirin 81mg BID x 4 weeks for blood clot prevention. Follow-up in the office in two weeks with Dr. Paez. Call the office with any questions or concerns, Discharge Disposition: HOME WITH HOME HEALTH SERVICES
[2021-10-17] MEDS: LACTATED RINGERS 1,000 ML IV SCH (11:00)
--- NOTE | 2021-10-17 12:39 | P.PN ---
Subjective Progress Note Date: 10/17/21 Consulting physician: Orthopedic surgery Reason for consult: Medical management History of present illness: 56-year-old male with past medical history significant for hypertension that improved after the patient quit drinking alcohol. History also of dyslipidemia and nicotine addiction. Patient stated that he is not in any pressure medication anymore. He still continues to smoke. Sounds physician hospitalist consulted for medical management. The patient denies any chest pain or shortness of breath. The patient denies nausea vomiting or abdominal pain. Patient had some urinary retention after voiding more than 100 mL postoperatively. His pain in the left hip is well-controlled with IV p remedication. Interval history: Patient was examined at the bedside. He denies any chest pain or shortness of breath. Physical examination: General: non toxic, no distress, appears at stated age Derm: warm, dry Head: atraumatic, normocephalic, symmetric Eyes: EOMI, no lid lag, anicteric sclera Mouth: no lip lesion, mucus membranes moist Cardiovascular: S1S2 reg, no murmur, positive posterior tibial pulse bilateral, Lungs: CTA bilateral, no rhonchi, no rales , no accessory muscle use Abdominal: soft, nontender to palpation, no guarding, no appreciable organomegaly Ext: no gross muscle atrophy, no edema, no contractures Neuro: CN II-XI grossly intact, no focal neuro deficits Psych: Alert, oriented, appropriate affect Assessment and plan: #Status post left total hip arthroplasty postoperative day #1 -Pain control, DVT prophylaxis per primary team -PT/OT #History of hypertension -Patient currently off medications for blood pressure well controlled. #Ongoing tobacco abuse -She was counseled regarding smoking cessation #DVT perplexes primary team Objective - Vital Signs Vital signs: Vital Signs Temp 98.1 F 10/17/21 07:58 Pulse 86 10/17/21 07:58 Resp 17 10/17/21 07:58 BP 122/68 10/17/21 07:58 Pulse Ox 99 10/17/21 01:47 FiO2 Intake & Output 10/16/21 10/17/21 10/17/21 18:59 06:59 18:59 Intake Total 1101 290 Output Total 350 900 Balance 751 -610 Weight 76.4 kg Intake: IV 1101 240 Lactated Ringers 1,000 ml 240 @ 20 mls/hr IV .Q24H [facility] Rx#:[id number] Intake, IV Titration 50 Amount ceFAZolin 2 gm In Sodium 50 Chloride 0.9% 50 ml @ 100 mls/hr IVPB Q8HR [facility] Rx# :[id number] Output: Drainage 100 Left Hip 100 Urine 150 800 Estimated Blood Loss 200 Other: # Voids 4 - Labs CBC & Chem 7: 10/17/21 05:49 Labs: Abnormal Lab Results - Last 24 Hours (Table) 10/17/21 Range/Units 05:49 WBC 16.55 H (4.50-10.00) X 10*3/uL RBC 4.16 L (4.40-5.60) X 10*6/uL Hgb 12.3 L (13.0-17.0) g/dL Hct 37.7 L (39.6-50.0) % MPV 9.0 L (9.5-12.2) fL Immature Gran # 0.06 H (0.00-0.04) X 10*3/uL Neutrophils # 11.86 H (1.80-7.70) X 10*3/uL Monocytes # 1.36 H (0.20-1.00) X 10*3/uL Eosinophils # 0.01 L (0.04-0.35) X 10*3/uL
--- NOTE | 2021-10-17 18:43 | P.ANPRN ---
Procedure Note - Anesthesia - Nerve Block Performed Left Erector Spinae Single Time Out Performed: Yes Date of Procedure: 10/16/21 Procedure Start Time: : Procedure Stop Time: Location of Patient: PreOp Indication: Acute Post-Operative Pain, Requested by Surgeon Sedation Type: Sedate with meaningful contact maintained Preparation: Sterile Prep Position: Prone Needle Types: Pajunk Needle Gauge: 21 Ultrasound used to visualize needle placement: Yes Ultrasound used to observe medication spread: Yes Blood Aspirated: No Pain Paresthesia on Injection Noted: No Resistance on Injection: Normal Image Stored and Saved: Yes Events: Uneventful and Well Tolerated (ropi .5% 20cc plus ns 10cc plus dexamethasone 4mg)
== END 2021-10-17 11:26 | disposition home health service (06) ==
LOC: OR 06:22 → 4SSUR 11:29 → OR 22:09 → 4SSUR 22:09
PROVIDERS: ADMIT Orthopaedic Surgery; ATTEND Orthopaedic Surgery
DX: M16.12 Unilateral primary osteoarthritis, left hip (principal); M25.752 Osteophyte, left hip; R33.8 Other retention of urine; E78.2 Mixed hyperlipidemia; Z97.3 Presence of spectacles and contact lenses; F17.210 Nicotine dependence, cigarettes, uncomplicated; Z71.6 Tobacco abuse counseling; Z98.890 Other specified postprocedural states; Z82.49 Family history of ischemic heart disease and other diseases of the circulatory system; Z79.82 Long term (current) use of aspirin; Z79.899 Other long term (current) drug therapy
CPT/HCPCS: 97162; 86900; 86901; 85025; 86850; 88300; 73501; 27130; G0378 ×2; C1776; S4990; J2250; J1100; J2710; J2175; J0690 ×2; J2405; J3010; J1170 ×3; J1885; J0330; J2704; J2001

== ENCOUNTER 2021-10-24 09:28 | Emergency (ER) | payer BC ==
[2021-10-24 09:44] VITALS: TEMP 98.8
--- NOTE | 2021-10-24 10:32 | ED ---
General Adult HPI - General Chief complaint: Chest Pain Stated complaint: Abd pain Time Seen by Provider: 10/24/21 09:50 Source: patient Mode of arrival: wheelchair Limitations: no limitations - History of Present Illness Initial comments: Dictation was produced using [employer] dictation software. please excuse any grammatical, word or spelling errors. Chief Complaint: 56-year-old male presents to the emergency department for episode of chest and abdominal pain History of Present Illness: 86-year-old male who presents emergency department for chest and abdominal pain. Patient states he woke up this morning he had a severe episode of left lower chest and left upper abdominal pain. He states it is cramping in nature caused him severe distress. Patient's been on proton pump inhibitors. Last week patient had a left hip surgery performed by orthopedic surgery. Patient had a left direct anterior total hip arthroplasty. Patient states that he has been recovering well. He denies any cardiac history. He does have history of hypertension and osteoarthritis. Patient states that his symptoms have been ongoing for several hours over en route to the emergency department his symptoms subsided to the point where it's barely noticeable. Patient has any shortness of breath. He otherwise felt fine last night before going to bed. He reports having had a similar episode in December of last year. Patient reports that his symptoms are nonradiating. Not associated with diaphoresis or nausea. Does not go down the arm or leg. Back in December he was seen for similar issue was admitted to the hospital. At that time a m yocardial infarction was ruled out. The ROS documented in this emergency department record has been reviewed and confirmed by me. Those systems with pertinent positive or negative responses have been documented in the HPI. All other systems are other negative and/or noncontributory. PHYSICAL EXAM: General Impression: Alert and oriented x3, not in acute distress HEENT: Normocephalic atraumatic, extra-ocular movements intact, pupils equal and reactive to light bilaterally, mucous membranes moist. Cardiovascular: Heart regular rate and rhythm Chest: Able to complete full sentences, no retractions, no tachypnea Abdomen: abdomen soft, non-tender, non-distended, no organomegaly Musculoskeletal: Pulses present and equal in all extremities, no peripheral edema Motor: no focal deficits noted Neurological: CN II-XII grossly intact, no focal motor or sensory deficits noted Skin: Intact with no visualized rashes Psych: Normal affect and mood ED course: 56-year-old male presents with severe acute episode of sudden abdominal pain. Patient states symptoms last for several minutes however r esolved while en route to the emergency department. He is minimally symptomatic at the bedside. Is in no acute distress and is well-appearing. Patient's pain is very typical for acute coronary syndrome. EKG does not show any signs of ischemia or infarction. Laboratory evaluation obtained. CBC, coag panel is within acceptable limits. Metabolic panel is negative. First troponin is negative. D-dimer is 1.65. Acute abdominal series x-ray with abdominal x-ray shows no acute processes. CT angios of the chest shows no evidence of pulmonary embolism or any other acute abnormalities. Patient observed in emergency department for 3 hours and 30 minutes. Patient reevaluated at bedside at 1 PM found to be stable medical condition. Patient is a symptomatic at the bedside. Disposition options were discussed with patient. Patient monitored to be discharge. He understands that his workup is not complete based on one troponin. He understands the risks of being discharged without at least a second troponin. Patient was offered observation admission however declined. Patient is well-appearing his symptoms are mostly atypical and had a negative workup back in December when he had a similar episode. He does not have any significant risk factors. I believe discharge is a reasonable disposition. Patient understands that he should return to the emergency department if he has any recurrent symptoms or worsening symptoms. EKG interpretation: Ventricular rate 67, sinus rhythm,. 170, QS 92, QTC 419. No HI prolongation, no QTC prolongation, no ST or T-wave changes noted. Overall, this EKG is unremarkable - Related Data Home Medications Medication Instructions Recorded Confirmed HYDROcodone/APAP 7.5-325MG [[place] 1 tab PO Q6HR PRN 10/14/21 10/16/21 7.5-325] Prochlorperazine [Compazine] 10 mg PO Q8H PRN 10/14/21 10/16/21 Previous Rx's Medication Instructions Recorded Aspirin 81 mg PO BID 30 Days #60 tab 10/16/21 Diclofenac Sodium [Voltaren] 75 mg PO BID 30 Days #60 tab 10/16/21 Docusate [Colace] 100 mg PO BID #60 capsule 10/16/21 HYDROcodone/APAP 5-325MG [[place] 1 - 2 tab PO Q6HR PRN #40 tab 10/16/21 5-325] Omeprazole 40 mg PO DAILY 30 Days #30 cap 10/16/21 Doxycycline [Vibramycin] 100 mg PO BID 14 Days #28 capsule 10/17/21 Allergies Allergy/AdvReac Type Severity Reaction Status Date / Time No Known Allergies Allergy Verified 10/24/21 09:44 Review of Systems ROS Statement: Those systems with pertinent positive or pertinent negative responses have been documented in the HPI. ROS Other: All systems not noted in ROS Statement are negative. Past Medical History Past Medical History: Hypertension, Osteoarthritis (OA) Additional Past Medical History / Comment(s): hx kidney stone, diverticulitis, took BP med in the past but not needed currently per pt. History of Any Multi-Drug Resistant Organisms: None Reported Past Surgical History: Orthopedic Surgery Additional Past Surgical History / Comment(s): tendon repair rt arm, arthroscopic knee surg. Past Anesthesia/Blood Transfusion Reactions: No Reported Reaction Past Psychological History: No Psychological Hx Reported Smoking Status: Current every day smoker Past Alcohol Use History: Occasional Past Drug Use History: Marijuana - Past Family History Mother Family Medical History: No Reported History General Exam Limitations: no limitations Course Vital Signs 10/24/21 10/24/21 09:41 12:50 Temperature 98.8 F Pulse Rate 72 90 Respiratory 16 18 Rate Blood Pressure 160/100 152/94 O2 Sat by Pulse 100 98 Oximetry Medical Decision Making - Lab Data Result diagrams: 10/24/21 10:34 10/24/21 10:34 Lab Results 10/24/21 10/24/21 10/24/21 Range/Units 10:34 10:34 10:34 WBC 12.1 H (3.8-10.6) k/uL RBC 4.16 L (4.30-5.90) m/uL Hgb 12.6 L D (13.0-17.5) gm/dL Hct 39.1 (39.0-53.0) % MCV 94.0 (80.0-100.0) fL MCH 30.4 (25.0-35.0) pg MCHC 32.4 (31.0-37.0) g/dL RDW 13.1 (11.5-15.5) % Plt Count 471 H D (150-450) k/uL MPV 6.8 Neutrophils % 81 % Lymphocytes % 12 % Monocytes % 4 % Eosinophils % 1 % Basophils % 0 % Neutrophils # 9.8 H (1.3-7.7) k/uL Lymphocytes # 1.5 (1.0-4.8) k/uL Monocytes # 0.5 (0-1.0) k/uL Eosinophils # 0.1 (0-0.7) k/uL Basophils # 0.0 (0-0.2) k/uL PT 10.3 (9.0-12.0) sec INR 0.9 (<1.2) APTT 24.7 (22.0-30.0) sec D-Dimer 1.65 H (<0.60) mg/L FEU Sodium 137 (137-145) mmol/L Potassium 4.5 (3.5-5.1) mmol/L Chloride 106 (98-107) mmol/L Carbon Dioxide 28 (22-30) mmol/L Anion Gap 3 mmol/L BUN 17 (9-20) mg/dL Creatinine 0.69 (0.66-1.25) mg/dL Est GFR (CKD-EPI)AfAm >90 (>60 ml/min/1.73 sqM) Est GFR (CKD-EPI)NonAf >90 (>60 ml/min/1.73 sqM) Glucose 112 H (74-99) mg/dL Calcium 8.7 (8.4-10.2) mg/dL Magnesium 2.0 (1.6-2.3) mg/dL Total Bilirubin 0.3 (0.2-1.3) mg/dL AST 34 (17-59) U/L ALT 31 (4-49) U/L Alkaline Phosphatase 55 (38-126) U/L Troponin I (0.000-0.034) ng/mL Total Protein 6.2 L (6.3-8.2) g/dL Albumin 3.7 (3.5-5.0) g/dL Lipase 102 (23-300) U/L 10/24/ Range/Units 10:34 WBC (3.8-10.6) k/uL RBC (4.30-5.90) m/uL Hgb (13.0-17.5) gm/dL Hct (39.0-53.0) % MCV (80.0-100.0) fL MCH (25.0-35.0) pg MCHC (31.0-37.0) g/dL RDW (11.5-15.5) % Plt Count (150-450) k/uL MPV Neutrophils % % Lymphocytes % % Monocytes % % Eosinophils % % Basophils % % Neutrophils # (1.3-7.7) k/uL Lymphocytes # (1.0-4.8) k/uL Monocytes # (0-1.0) k/uL Eosinophils # (0-0.7) k/uL Basophils # (0-0.2) k/uL PT (9.0-12.0) sec INR (<1.2) APTT (22.0-30.0) sec D-Dimer (<0.60) mg/L FEU Sodium (137-145) mmol/L Potassium (3.5-5.1) mmol/L Chloride (98-107) mmol/L Carbon Dioxide (22-30) mmol/L Anion Gap mmol/L BUN (9-20) mg/dL Creatinine (0.66-1.25) mg/dL Est GFR (CKD-EPI)AfAm (>60 ml/min/1.73 sqM) Est GFR (CKD-EPI)NonAf (>60 ml/min/1.73 sqM) Glucose (74-99) mg/dL Calcium (8.4-10.2) mg/dL Magnesium (1.6-2.3) mg/dL Total Bilirubin (0.2-1.3) mg/dL AST (17-59) U/L ALT (4-49) U/L Alkaline Phosphatase (38-126) U/L Troponin I <0.012 (0.000-0.034) ng/mL Total Protein (6.3-8.2) g/dL Albumin (3.5-5.0) g/dL Lipase (23-300) U/L Disposition Clinical Impression: Chest pain Disposition: HOME SELF-CARE Condition: Fair Instructions (If sedation given, give patient instructions): Chest Pain (ED) Additional Instructions: Return to the emergency department with recurrent or worsening symptoms. Is patient prescribed a controlled substance at d/c from ED?: No Referrals: Ole Ellison DO [Primary Care Provider] - 1-2 days Time of Disposition: 12:57
--- NOTE | 2021-10-24 10:52 | XR ---
EXAMINATION TYPE: XR abdomen acute w cxr DATE OF EXAM: 10/24/2021 COMPARISON: NONE HISTORY: Pain TECHNIQUE: Single view of the chest and 2 views of the abdomen are submitted. FINDINGS: Single view of the chest fails demonstrate evidence for acute pulmonary disease. There is no evidence for pneumoperitoneum. The bowel gas pattern is unremarkable as there is air throughout nondilated small and large bowel. No sizeable air fluid levels.No mass effects are seen. No unusual calcifications. IMPRESSION: 1. Unremarkable study.
[2021-10-24 10:53] LABS: Basophils % (A) 0 %; Eosinophils # (A) 0.1 k/uL (0-0.7); Eosinophils % (A) 1 %; HCT 39.1 % (39.0-53.0); Lymphocytes # (A) 1.5 k/uL (1.0-4.8); Lymphocytes % (A) 12 %; MCH 30.4 pg (25.0-35.0); MCHC 32.4 g/dL (31.0-37.0); Mean Platelet Volume 6.8; Monocytes # (A) 0.5 k/uL (0-1.0); Monocytes % (A) 4 %; Neutrophils # (A) 9.8 k/uL (1.3-7.7); Neutrophils % (A) 81 %; RBC 4.16 m/uL (4.30-5.90); RDW 13.1 % (11.5-15.5); WBC 12.1 k/uL (3.8-10.6)
[2021-10-24 10:55] LABS: ALT 31 U/L (4-49); AST 34 U/L (17-59); African American GFR (CKD) >90 (>60 ml/min/1.73 sqM); Albumin 3.7 g/dL (3.5-5.0); Alkaline Phosphatase 55 U/L (38-126); Anion Gap 3 mmol/L; Blood Urea Nitrogen 17 mg/dL (9-20); Calcium 8.7 mg/dL (8.4-10.2); Carbon Dioxide 28 mmol/L (22-30); Chloride 106 mmol/L (98-107); Glucose 112 mg/dL (74-99); Lipase 102 U/L (23-300); Non-African American GFR(CKD) >90 (>60 ml/min/1.73 sqM); Potassium 4.5 mmol/L (3.5-5.1); Sodium 137 mmol/L (137-145); Total Bilirubin 0.3 mg/dL (0.2-1.3); Total Protein 6.2 g/dL (6.3-8.2)
[2021-10-24 10:57] LABS: INR 0.9 (<1.2)
[2021-10-24 10:58] LABS: Partial Thromboplastin Time 24.7 sec (22.0-30.0); Prothrombin Time 10.3 sec (9.0-12.0)
[2021-10-24 11:12] LABS: HGB 12.6 gm/dL (13.0-17.5); Platelet Count 471 k/uL (150-450)
--- NOTE | 2021-10-24 11:52 | CT ---
EXAMINATION TYPE: CT angio chest DATE OF EXAM: 10/24/2021 COMPARISON: None HISTORY: Elevated d-dimer and chest pain. Hx of recent hip replacement x1 week ago. CT DLP: 384.2 mGycm CONTRAST: CT chest with contrast and 3D reconstruction with MIP imaging is performed with IV Contrast, patient injected with 100ml mL of Isovue 300. Contrast-enhanced CT of the chest was performed through the course of the pulmonary arteries with aron g and mediastinal window settings submitted. 3D reconstruction with MIP imaging was also performed. PULMONARY ARTERIES: The pulmonary arteries and their major tributaries are patent. I do not see hector dence for sizable filling defect to suggest pulmonary embolic process. LUNGS: The lungs are clear and free of infiltrate. No evidence for atelectasis. No pulmonary nodule or mass is detected. No pleural effusion. MEDIASTINUM: Thoracic aorta is of normal caliber,however, evaluation is limited given timing of the contrast bolus. If there is concern for thoracic aortic pathology consider BLAKE. Correlate clinicall y . The heart is not enlarged. No evidence for mediastinal mass. No mediastinal lymph nodes greater than 1cm. HILAR STRUCTURES: No evidence for mass. No hilar lymph nodes greater than 1 cm. UPPER ABDOMEN: No significant abnormality is seen. IMPRESSION: 1. No evidence for Pulmonary embolism at this time.
[2021-10-24 12:51] VITALS: BP 152/94; PULSE 90; RESP 18
[2021-10-24] MEDS ORDERED: ASPIRIN 81 MG PO STA (12:57)
== END 2021-10-24 13:27 | disposition home or self-care (01) ==
LOC: EC 09:28
DX: R07.89 Other chest pain (principal); I10 Essential (primary) hypertension; M19.90 Unspecified osteoarthritis, unspecified site; F17.200 Nicotine dependence, unspecified, uncomplicated; F12.90 Cannabis use, unspecified, uncomplicated; Z79.82 Long term (current) use of aspirin; Z79.899 Other long term (current) drug therapy
CPT/HCPCS: 36415; 93005; 85379; 80053; 83690; 83735; 84484; 85025; 85610; 85730; 74022; 71275; 99285; Q9967

== ENCOUNTER 2021-10-26 11:55 | Observation (INO) | payer BC ==
[2021-10-26] MEDS ORDERED: ASPIRIN 81 MG PO STA (12:13)
[2021-10-26] MEDS ORDERED: NITROGLYCERIN SL TABS 0.4 MG TAB SUBLINGUAL STA ×3 (12:13)
--- NOTE | 2021-10-26 12:18 | ED ---
General Adult HPI - General Chief complaint: Chest Pain Stated complaint: Chest Pain Time Seen by Provider: 10/26/21 12:05 Source: patient, EMS, RN notes reviewed, old records reviewed Mode of arrival: EMS Limitations: no limitations - History of Present Illness Initial comments: Patient is a pleasant 56-year-old male presenting to emergency department chest discomfort. Onset of symptoms was this morning around 9:00. Symptoms have been steady since that time. Discomfort is somewhat severe. No dyspnea. Patient does have nausea and has vomited. Patient also complains of having some abdominal discomfort however states it is essentially the chest at this time. Patient did abdominal pain couple of days ago - Related Data Home Medications Medication Instructions Recorded Confirmed HYDROcodone/APAP 7.5-325MG [[place] 1 tab PO Q6HR PRN 10/14/21 10/16/21 7.5-325] Prochlorperazine [Compazine] 10 mg PO Q8H PRN 10/14/21 10/16/21 Previous Rx's Medication Instructions Recorded Aspirin 81 mg PO BID 30 Days #60 tab 10/16/21 Diclofenac Sodium [Voltaren] 75 mg PO BID 30 Days #60 tab 10/16/21 Docusate [Colace] 100 mg PO BID #60 capsule 10/16/21 HYDROcodone/APAP 5-325MG [[place] 1 - 2 tab PO Q6HR PRN #40 tab 10/16/21 5-325] Omeprazole 40 mg PO DAILY 30 Days #30 cap 10/16/21 Doxycycline [Vibramycin] 100 mg PO BID 14 Days #28 capsule 10/17/21 Allergies Allergy/AdvReac Type Severity Reaction Status Date / Time No Known Allergies Allergy Verified 10/26/21 12:05 Review of Systems ROS Statement: Those systems with pertinent positive or pertinent negative responses have been documented in the HPI. ROS Other: All systems not noted in ROS Statement are negative. Constitutional: Denies: fever Eyes: Denies: eye pain ENT: Denies: ear pain Respiratory: Denies: cough Cardiovascular: Reports: as per HPI, chest pain Endocrine: Denies: fatigue Gastrointestinal: Reports: as per HPI, nausea, vomiting Genitourinary: Denies: dysuria Musculoskeletal: Denies: back pain Skin: Denies: rash Neurological: Denies: weakness Past Medical History Past Medical History: Hypertension, Osteoarthritis (OA) Additional Past Medical History / Comment(s): hx kidney stone, diverticulitis, took BP med in the past but not needed currently per pt. History of Any Multi-Drug Resistant Organisms: None Reported Past Surgical History: Orthopedic Surgery Additional Past Surgical History / Comment(s): tendon repair rt arm, arthroscopic knee surg. Past Anesthesia/Blood Transfusion Reactions: No Reported Reaction Past Psychological History: No Psychological Hx Reported Smoking Status: Current every day smoker Past Alcohol Use History: Occasional Past Drug Use History: Marijuana - Past Family History Mother Family Medical History: No Reported History General Exam Limitations: no limitations General appearance: alert Head exam: Present: normocephalic Eye exam: Present: normal appearance Neck exam: Present: normal inspection Respiratory exam: Present: normal lung sounds bilaterally Cardiovascular Exam: Present: regular rate, normal rhythm Expanded Peripheral pulses: 2+: Radial (R), Radial (L), Posterior Tibialis (R), Posterior Tibialis (L), Dorsalis Pedis (R), Dorsalis Pedis (L) GI/Abdominal exam: Present: soft, normal bowel sounds. Absent: distended, tenderness, guarding, rebound, rigid, pulsatile mass Extremities exam: Present: normal inspection. Absent: pedal edema, calf tenderness Neurological exam: Present: alert Psychiatric exam: Present: normal affect, normal mood Skin exam: Present: normal color Course Vital Signs 10/26/21 10/26/21 11:57 12:57 Temperature 97.6 F Pulse Rate 75 58 L Respiratory 18 18 Rate Blood Pressure 164/104 176/98 O2 Sat by Pulse 100 98 Oximetry EKG Findings - EKG Comments: EKG Findings:: Sinus rhythm with a rate of 63. MD 155. QRS 94. QT 427. QTC 435. Normal extraocular normal QRS. No acute ST change. Medical Decision Making - Medical Decision Making Patient reevaluated and improved significantly with nitroglycerin. Patient did have computed tomography scan done 2 days ago. D-dimer slightly improved since that time. Patient updated on results and plan. [facility] [place] physician group has been paged for admission covering for Dr. Nice Case was discussed with Dr. Robledo, who will admit. - Lab Data Result diagrams: 10/26/21 12:17 10/26/21 12:17 Lab Results 10/26/21 10/26/21 10/26/21 Range/Units 12:17 12:17 12:17 WBC 11.1 H (3.8-10.6) k/uL RBC 4.52 (4.30-5.90) m/uL Hgb 13.8 (13.0-17.5) gm/dL Hct 41.8 (39.0-53.0) % MCV 92.6 (80.0-100.0) fL MCH 30.4 (25.0-35.0) pg MCHC 32.9 (31.0-37.0) g/dL RDW 12.9 (11.5-15.5) % Plt Count 468 H (150-450) k/uL MPV 7.0 Neutrophils % 83 % Lymphocytes % 13 % Monocytes % 2 % Eosinophils % 1 % Basophils % 1 % Neutrophils # 9.2 H (1.3-7.7) k/uL Lymphocytes # 1.4 (1.0-4.8) k/uL Monocytes # 0.2 (0-1.0) k/uL Eosinophils # 0.1 (0-0.7) k/uL Basophils # 0.1 (0-0.2) k/uL PT 10.5 (9.0-12.0) sec INR 1.0 (<1.2) APTT 17.8 L (22.0-30.0) sec D-Dimer 1.59 H (<0.60) mg/L FEU Sodium 137 (137-145) mmol/L Potassium 4.6 (3.5-5.1) mmol/L Chloride 107 (98-107) mmol/L Carbon Dioxide 23 (22-30) mmol/L Anion Gap 7 mmol/L BUN 20 (9-20) mg/dL Creatinine 0.70 (0.66-1.25) mg/dL Est GFR (CKD-EPI)AfAm >90 (>60 ml/min/1.73 sqM) Est GFR (CKD-EPI)NonAf >90 (>60 ml/min/1.73 sqM) Glucose 152 H (74-99) mg/dL Calcium 9.4 (8.4-10.2) mg/dL Magnesium 1.9 (1.6-2.3) mg/dL Total Bilirubin 0.7 (0.2-1.3) mg/dL AST 35 (17-59) U/L ALT 36 (4-49) U/L Alkaline Phosphatase 60 (38-126) U/L Troponin I (0.000-0.034) ng/mL Total Protein 7.2 (6.3-8.2) g/dL Albumin 4.3 (3.5-5.0) g/dL Amylase 80 (30-110) U/L Lipase 86 (23-300) U/L 10/26/21 Range/Units 12:17 WBC (3.8-10.6) k/uL RBC (4.30-5.90) m/uL Hgb (13.0-17.5) gm/dL Hct (39.0-53.0) % MCV (80.0-100.0) fL MCH (25.0-35.0) pg MCHC (31.0-37.0) g/dL RDW (11.5-15.5) % Plt Count (150-450) k/uL MPV Neutrophils % % Lymphocytes % % Monocytes % % Eosinophils % % Basophils % % Neutrophils # (1.3-7.7) k/uL Lymphocytes # (1.0-4.8) k/uL Monocytes # (0-1.0) k/uL Eosinophils # (0-0.7) k/uL Basophils # (0-0.2) k/uL PT (9.0-12.0) sec INR (<1.2) APTT (22.0-30.0) sec D-Dimer (<0.60) mg/L FEU Sodium (137-145) mmol/L Potassium (3.5-5.1) mmol/L Chloride (98-107) mmol/L Carbon Dioxide (22-30) mmol/L Anion Gap mmol/L BUN (9-20) mg/dL Creatinine (0.66-1.25) mg/dL Est GFR (CKD-EPI)AfAm (>60 ml/min/1.73 sqM) Est GFR (CKD-EPI)NonAf (>60 ml/min/1.73 sqM) Glucose (74-99) mg/dL Calcium (8.4-10.2) mg/dL Magnesium (1.6-2.3) mg/dL Total Bilirubin (0.2-1.3) mg/dL AST (17-59) U/L ALT (4-49) U/L Alkaline Phosphatase (38-126) U/L Troponin I <0.012 (0.000-0.034) ng/mL Total Protein (6.3-8.2) g/dL Albumin (3.5-5.0) g/dL Amylase (30-110) U/L Lipase (23-300) U/L - Radiology Data Radiology results: image reviewed (Chest x-ray shows no acute process) Disposition Clinical Impression: Chest pain Disposition: ADMITTED IP TO THIS HOSP Is patient prescribed a controlled substance at d/c from ED?: No Time of Disposition: 13:26
[2021-10-26 12:26] LABS: Basophils # (A) 0.1 k/uL (0-0.2); Basophils % (A) 1 %; Eosinophils # (A) 0.1 k/uL (0-0.7); Eosinophils % (A) 1 %; HCT 41.8 % (39.0-53.0); HGB 13.8 gm/dL (13.0-17.5); Lymphocytes # (A) 1.4 k/uL (1.0-4.8); Lymphocytes % (A) 13 %; MCH 30.4 pg (25.0-35.0); MCHC 32.9 g/dL (31.0-37.0); MCV 92.6 fL (80.0-100.0); Monocytes # (A) 0.2 k/uL (0-1.0); Monocytes % (A) 2 %; Neutrophils # (A) 9.2 k/uL (1.3-7.7); Neutrophils % (A) 83 %; Platelet Count 468 k/uL (150-450); RBC 4.52 m/uL (4.30-5.90); RDW 12.9 % (11.5-15.5); WBC 11.1 k/uL (3.8-10.6)
[2021-10-26 12:35] LABS: ALT 36 U/L (4-49); AST 35 U/L (17-59); African American GFR (CKD) >90 (>60 ml/min/1.73 sqM); Albumin 4.3 g/dL (3.5-5.0); Alkaline Phosphatase 60 U/L (38-126); Amylase 80 U/L (30-110); Anion Gap 7 mmol/L; Blood Urea Nitrogen 20 mg/dL (9-20); Calcium 9.4 mg/dL (8.4-10.2); Carbon Dioxide 23 mmol/L (22-30); Chloride 107 mmol/L (98-107); Glucose 152 mg/dL (74-99); Lipase 86 U/L (23-300); Magnesium 1.9 mg/dL (1.6-2.3); Non-African American GFR(CKD) >90 (>60 ml/min/1.73 sqM); Potassium 4.6 mmol/L (3.5-5.1); Sodium 137 mmol/L (137-145); Total Bilirubin 0.7 mg/dL (0.2-1.3); Total Protein 7.2 g/dL (6.3-8.2)
--- NOTE | 2021-10-26 12:36 | XR ---
EXAMINATION TYPE: XR chest 2V DATE OF EXAM: 10/26/2021 COMPARISON: NONE TECHNIQUE: PA and lateral views submitted. HISTORY: Pain FINDINGS: The lungs are clear and there is no pneumothorax, pleural effusion, or focal pneumonia. Arthropathy of the shoulders. Hypertrophic degenerative changes spine. Hyperinflation correlate for asthma or CO PD. IMPRESSION: 1. No acute process.
[2021-10-26 12:45] LABS: Prothrombin Time 10.5 sec (9.0-12.0)
[2021-10-26 12:52] LABS: Partial Thromboplastin Time 17.8 sec (22.0-30.0)
[2021-10-26] MEDS ORDERED: PROCHLORPERAZINE 10 MG TAB PO PRN (13:26)
[2021-10-26] MEDS ORDERED: NITROGLYCERIN SL TABS 0.4 MG TAB SUBLINGUAL PRN (13:27)
[2021-10-26] MEDS ORDERED: NALOXONE 0.4 MG/ML 1 ML VIAL IV PRN (16:33)
[2021-10-26] MEDS ORDERED: hydrALAZINE HCL 25 MG TAB PO PRN (16:41)
[2021-10-26] MEDS ORDERED: MORPHINE SULFATE 4 MG/ML SYRINGE IVP STA (16:47)
[2021-10-26] MEDS: amLODIPine 5 MG TAB PO SCH (16:49)
--- NOTE | 2021-10-26 16:52 | P.HPIM ---
History of Present Illness H&P Date: 10/26/21 Review of Systems 14 point review of system was done in detail and is negative except as above in HPI. Past Medical History Past Medical History: Hypertension, Osteoarthritis (OA) Additional Past Medical History / Comment(s): hx kidney stone, diverticulitis, took BP med in the past but not needed currently per pt. History of Any Multi-Drug Resistant Organisms: None Reported Past Surgical History: Orthopedic Surgery Additional Past Surgical History / Comment(s): tendon repair rt arm, arthroscopic knee surg. Past Anesthesia/Blood Transfusion Reactions: No Reported Reaction Past Psychological History: No Psychological Hx Reported Smoking Status: Current every day smoker Past Alcohol Use History: Occasional Past Drug Use History: Marijuana - Past Family History Mother Family Medical History: No Reported History Medications and Allergies Home Medications Medication Instructions Recorded Confirmed Type Prochlorperazine [Compazine] 10 mg PO Q8H PRN 10/14/21 10/26/21 History Aspirin 81 mg PO BID 30 Days #60 tab 10/16/21 10/26/21 Rx Diclofenac Sodium [Voltaren] 75 mg PO BID 30 Days #60 tab 10/16/21 10/26/21 Rx Docusate [Colace] 100 mg PO BID #60 capsule 10/16/21 10/26/21 Rx HYDROcodone/APAP 5-325MG [[place] 1 - 2 tab PO Q6HR PRN #40 tab 10/16/21 10/26/21 Rx 5-325] Omeprazole 40 mg PO DAILY 30 Days #30 cap 10/16/21 10/26/21 Rx Doxycycline [Vibramycin] 100 mg PO BID 14 Days #28 capsule 10/17/21 10/26/21 Rx Allergies Allergy/AdvReac Type Severity Reaction Status Date / Time No Known Allergies Allergy Verified 10/26/21 13:53 Physical Exam Vitals: Vital Signs Temp Pulse Resp BP Pulse Ox 10/26/21 16:36 197/95 10/26/21 16:32 61 18 96 10/26/21 14:37 56 L 18 160/76 98 10/26/21 12:57 58 L 18 176/98 98 10/26/21 11:57 97.6 F 75 18 164/104 100 Intake and Output 10/26/21 10/26/21 10/26/21 06:59 14:59 22:59 Other: Weight 77.111 kg General: non toxic, no acute distress, alert oriented to time place and person Head: atraumatic, normocephalic, symmetric Eyes: no lid lesion], anicteric sclera Mouth: no lip lesion, mucus membranes moist Cardiovascular: S1S2 reg rate and rhythm, no murmur, no gallop Lungs: Bilateral equal air entry, no wheezing no rhonchi no crackles. Abdominal: soft, nontender to palpation, no guarding, no appreciable organomegaly Ext: Left-sided hip area covered with surgical dressing, no signs of swelling unusual erythema on surrounding area Neuro: Alert oriented to time place and person, exam grossly nonfocal Psych: Mood and affect appropriate, patient not so certain Skin exam: No rashes no jaundice. Results CBC & Chem 7: 10/26/21 12:17 10/26/21 12:17 Labs: Abnormal Lab Results - Last 24 Hours (Table) 10/26/21 10/26/21 10/26/21 Range/Units 12:17 12:17 12:17 WBC 11.1 H (3.8-10.6) k/uL Plt Count 468 H (150-450) k/uL Neutrophils # 9.2 H (1.3-7.7) k/uL APTT 17.8 L (22.0-30.0) sec D-Dimer 1.59 H (<0.60) mg/L FEU Glucose 152 H (74-99) mg/dL Assessment and Plan Assessment: Assessment and plan Chest pain/discomfort Atypical chest pain cardiac workup negative here, recent hospital visit to ER reviewed, CTA at that time was negative for any acute findings Possibly due to accelerated hypertension Starting patient on losartan and Norvasc Continue cardiac telemetry, continue to trend troponin Echocardiogram requested Cardiology consulted Accelerated hypertension Antihypertensive medication regimen started as above Hydralazine when necessary Recent left hip replacement surgery Patient was discharged on 10/17/2021 Continue DVT prophylaxis with aspirin twice a day Orthopedic consulted for evaluation Ongoing tobacco abuse Smoking cessation counseling Nicotine patch as needed Marijuana abuse Recommend quitting substance abuse DVT prophylaxis: Aspirin twice a day CODE STATUS: Full code Discharge plan: Back to home pending hospital course and clinical improvement
--- NOTE | 2021-10-26 17:15 | CA ---
Transthoracic Echo Report Name: Brent Hernandez Age: 56 Gender: M : 1965 Exam Date: 10/26/2021 14:30 Exam Location: [facility] Ht (in): 67 Wt (lb): 170 Ordering Physician: Vidal Mann DO Attending/Referring Phys: Reconciliation Clerk Cara Barrett RDCS Procedure CPT: Indications: Chest Pain Cardiac Hx: Technical Quality: Contrast 1: Total Dose (mL): Contrast 2: Total Dose (mL): MEASUREMENTS (Male / Female) Normal Values 2D ECHO LV Diastolic Diameter PLAX 3.9 cm 4.2 - 5.9 / 3.9 - 5.3 cm LV Systolic Diameter PLAX 3.1 cm IVS Diastolic Thickness 1.1 cm 0.6 - 1.0 / 0.6 - 0.9 cm LVPW Diastolic Thickness 1.5 cm 0.6 - 1.0 / 0.6 - 0.9 cm LV Relative Wall Thickness 0.7 RV Internal Dim ED PLAX 2.7 cm LA Volume 75.5 cm??? 18 - 58 / 22 - 52 cm??? M-MODE Aortic Root Diameter MM 3.1 cm MV E Point Septal Separation 0.3 cm AV Cusp Separation MM 1.6 cm DOPPLER AV Peak Velocity 150.8 cm/s AV Peak Gradient 9.1 mmHg MV E' Velocity 9.1 cm/s FINDINGS Left Ventricle Normal left ventricular size,mild wall thickness, systolic function with no obvious regional wall motion abnormalities. Left ventricular ejection fraction is estimated at 50-55%. Right Ventricle The right ventricle is normal in size and function. Right Atrium The right atrium is normal in size. Left Atrium Moderately increased left atrial volume. Mildly increased left atrial area. Mitral Valve Structurally normal mitral valve without significant stenosis or prolapse. There is no mitral regurgitation. Aortic Valve Structurally normal aortic valve with mild sclerosis or stenosis. There is no aortic regurgitation. Tricuspid Valve Structurally normal tricuspid valve without significant stenosis. Pulmonary artery systolic pressure is normal. Pulmonic Valve Structurally normal pulmonic valve without significant stenosis. There is no pulmonic regurgitation. Pericardium Normal pericardium without effusion. Aorta Normal aortic root dimension. CONCLUSIONS Normal LV systolic function Left atrial enlargement Aortic sclerosis without any stenosis Previewed by: Dr. Frandy Glaser MD (Electronically Signed) Final Date: 26 October 2021 17:14
[2021-10-26] MEDS: LOSARTAN 25 MG TAB PO SCH (17:53)
[2021-10-26] MEDS: SODIUM CHLORIDE 0.9% 1,000 ML IV SCH (17:53)
[2021-10-26] MEDS ORDERED: ONDANSETRON 4 MG/2 ML VIAL IVP PRN (18:05)
[2021-10-26] MEDS: ASPIRIN 81 MG PO SCH (20:52)
[2021-10-26] MEDS: DOCUSATE 100 MG CAP PO SCH (20:52)
[2021-10-26] MEDS: NITROGLYCERIN OINT 1 INCH/GM PACKET TOPICAL SCH ×2 (20:54→23:38)
[2021-10-27] MEDS: SODIUM CHLORIDE 0.9% 1,000 ML IV SCH ×2 (02:35→14:35)
[2021-10-27] MEDS ORDERED: ACETAMINOPHEN TAB 325 MG TAB PO PRN (05:09)
[2021-10-27] MEDS: NITROGLYCERIN OINT 1 INCH/GM PACKET TOPICAL SCH (05:26)
[2021-10-27] MEDS ORDERED: PANTOPRAZOLE 40 MG TABLET PO SCH (07:30)
[2021-10-27 07:44] VITALS: TEMP 98.3
[2021-10-27] MEDS ORDERED: DOBUTamine DRIP for NUC MED 500 MG/250 ML BAG IV ONE (08:00)
[2021-10-27] MEDS ORDERED: ASPIRIN 325 MG TAB PO SCH (09:00)
[2021-10-27 09:10] LABS: Basophils # (A) 0.02 X 10*3/uL (0.00-0.10); Basophils % (A) 0.1 %; Eosinophils # (A) 0.04 X 10*3/uL (0.04-0.35); Eosinophils % (A) 0.3 %; HCT 36.1 % (39.6-50.0); HGB 11.6 g/dL (13.0-17.0); Immature Grans, Automated 0.4 %; Lymphocytes # (A) 2.77 X 10*3/uL (0.90-5.00); Lymphocytes % (A) 20.6 %; MCH 29.5 pg (27.0-32.0); MCHC 32.1 g/dL (32.0-37.0); MCV 91.9 fL (80.0-97.0); Mean Platelet Volume 8.6 fL (9.5-12.2); Monocytes # (A) 1.04 X 10*3/uL (0.20-1.00); Monocytes % (A) 7.7 %; NRBC Per 100 WBC 0 /100 WBCS (0.0-0.0); Neutrophils # (A) 9.51 X 10*3/uL (1.80-7.70); Neutrophils % (A) 70.9 %; Platelet Count 420 X 10*3/uL (140-440); RBC 3.93 X 10*6/uL (4.40-5.60); RDW 13.7 % (11.5-14.5); WBC 13.43 X 10*3/uL (4.50-10.00)
[2021-10-27 09:35] LABS: African American GFR (CKD) 121.9 (60.0-200.0); BUN/Creat Ratio 19.34 Ratio (12.00-20.00); Blood Urea Nitrogen 13.4 mg/dL (9.0-27.0); Calcium 8.7 mg/dL (8.7-10.3); Carbon Dioxide 24.2 mmol/L (20.0-27.5); Chloride 107 mmol/L (96-109); Chol/HDL Ratio 5.56 Ratio; Glucose 110 mg/dL (70-110); LDL Cholesterol,Calculated 143.9 mg/dL (0.0-131.0); Non-African American GFR(CKD) 105.2 (60.0-200.0); Potassium 3.8 mmol/L (3.5-5.5); Sodium 142 mmol/L (135-145)
[2021-10-27] MEDS: DOCUSATE 100 MG CAP PO SCH (09:53)
[2021-10-27] MEDS: LOSARTAN 25 MG TAB PO SCH (09:53)
[2021-10-27] MEDS: ASPIRIN 81 MG PO SCH (09:53)
[2021-10-27] MEDS: amLODIPine 5 MG TAB PO SCH (09:54)
[2021-10-27] MEDS ORDERED: DOBUTamine DRIP for NUC MED 500 MG in DEXTROSE/WATER 1 250ML.BAG IV PRN (10:01)
--- NOTE | 2021-10-27 10:11 | P.CRDCN ---
History of Present Illness Consult date: 10/27/21 History of present illness: HISTORY OF PRESENT ILLNESS: This is a 56-year-old male with a past medical history significant for hypertension, nicotine dependence, and marijuana use. Patient follows in the office with Dr. Heck. We have been asked to see the patient in consultation for chest pain. Patient examined at the bedside. Patient states yesterday he began having chest pain and abdominal pain. He states that to happen simultaneously. He states the pain occurred first thing in the morning. He states this happened back in December. He also reports this happened to him on Tuesday and he came to the ER for evaluation. He states the pain was on the left side of his chest and also the left side of his abdomen. He reports the chest pain felt like a pressure type sensation. He did report occasional shortness of breath and diaphoresis. He denied any radiation of the pain. He states the pain lasted for a few hours and then went away. He is unsure if he received anything in the emergency room for the pain. At the time of examination, the patient denies any chest pain or pressure. He does report nicotine use and daily marijuana use. He denies any alcohol use. It is noted that the patient's blood pressures were elevated on admission with a systolic between 160 and 190. * EKG reveals sinus mechanism with no signs of acute ischemia * Chest xray negative for acute process * Laboratory data: WBC 13.4. Hemoglobin 11.6. Platelet count 420. Sodium 142. Potassium 3.8. BUN 13. Creatinine 0.7. Troponin negative 3 * Current home cardiac medications include aspirin 81 mg twice a day * Echocardiogram completed revealing ejection fraction 50-55% with no regional wall motion abnormalities * Patient underwent Lexiscan stress test and January 2021 with no reversible ischemia noted. Fixed inferior defect most consistent with diaphragmatic attenuation artifact. REVIEW OF SYSTEMS: At the time of my exam: CONSTITUTIONAL: Denies fever or chills. HEENT: Denies blurred vision, vision changes, or eye pain. Denies hemoptysis CARDIOVASCULAR: Denies chest pain. Denies orthopnea. Denies PND. Denies palpitations RESPIRATORY: Denies shortness of breath. GASTROINTESTINAL: Denies abdominal pain. Denies nausea or vomiting. HEMATOLOGIC: Denies bleeding disorders. GENITOURINARY: Denies any blood in urine. SKIN: Denies pruitis. Denies rash. PHYSICAL EXAM: VITAL SIGNS: Reviewed. GENERAL: Well-developed in no acute distress. HEENT: Head is normocephalic. Pupils are equal, round. Sclerae anicteric. Mucous membranes of the mouth are moist. Neck supple. No JVD or thyromegaly LUNGS: Respirations even and unlabored. Lungs essentially clear to auscultation bilaterally. HEART: Regular rate and rhythm. S1 and S2 heard. ABDOMEN: Soft. Nondistended. Nontender. EXTREMITIES: Normal range of motion. No clubbing or cyanosis. Peripheral pulses intact. No lower extremity edema NEUROLOGIC: Awake and alert. Oriented x 3. ASSESSMENT: Chest pain, troponins negative 3 Left-sided abdominal pain Hypertension Hyperlipidemia, LDL 143 Nicotine dependence Marijuana use PLAN: An acute coronary then has been ruled out 2-D echo obtained and reviewed Patient has been started on Cozaar and Norvasc with improvement in his blood pressures. Discontinue Norvasc and increase Cozaar to 50 mg daily Add Lipitor 20 mg Smoking cessation recommended Abstinence from marijuana use encouraged Patient to undergo dobutamine stress echo today to assess for ischemia Further recommendations pending patient's course Nurse practitioner note has been reviewed by physician. Signing provider agrees with the documented findings, assessment, and plan of care. Past Medical History Past Medical History: Hypertension, Osteoarthritis (OA) Additional Past Medical History / Comment(s): hx kidney stone, diverticulitis, took BP med in the past but not needed currently per pt. History of Any Multi-Drug Resistant Organisms: None Reported Past Surgical History: Orthopedic Surgery Additional Past Surgical History / Comment(s): tendon repair rt arm, arthroscopic knee surg. Past Anesthesia/Blood Transfusion Reactions: No Reported Reaction Past Psychological History: No Psychological Hx Reported Smoking Status: Current every day smoker Past Alcohol Use History: Occasional Additional Past Alcohol Use History / Comment(s): 1ppd for 25 yrs. Past Drug Use History: Marijuana Additional Drug Use History / Comment(s): occasional use - Past Family History Mother Family Medical History: No Reported History Medications and Allergies Home Medications Medication Instructions Recorded Confirmed Type Prochlorperazine [Compazine] 10 mg PO Q8H PRN 10/14/21 10/26/21 History Aspirin 81 mg PO BID 30 Days #60 tab 10/16/21 10/26/21 Rx Diclofenac Sodium [Voltaren] 75 mg PO BID 30 Days #60 tab 10/16/21 10/26/21 Rx Docusate [Colace] 100 mg PO BID #60 capsule 10/16/21 10/26/21 Rx HYDROcodone/APAP 5-325MG [[place] 1 - 2 tab PO Q6HR PRN #40 tab 10/16/21 10/26/21 Rx 5-325] Omeprazole 40 mg PO DAILY 30 Days #30 cap 10/16/21 10/26/21 Rx Doxycycline [Vibramycin] 100 mg PO BID 14 Days #28 capsule 10/17/21 10/26/21 Rx Allergies Allergy/AdvReac Type Severity Reaction Status Date / Time No Known Allergies Allergy Verified 10/26/21 13:53 Physical Exam Vitals: Vital Signs Temp Pulse Pulse Resp BP BP Pulse Ox 10/27/21 07:43 98.3 F 71 18 142/75 96 10/27/21 01:40 98.9 F 88 16 127/76 97 10/26/21 20:00 98.7 F 103 H 18 140/79 98 10/26/21 19:34 107 H 10/26/21 17:16 98 F 64 18 182/81 99 10/26/21 17:06 98.6 F 10/26/21 16:36 197/95 10/26/21 16:32 61 18 96 10/26/21 14:37 56 L 18 160/76 98 10/26/21 12:57 58 L 18 176/98 98 10/26/21 11:57 97.6 F 75 18 164/104 100 Intake and Output 10/26/21 10/27/21 10/27/21 22:59 06:59 14:59 Intake Total 118 Output Total 1 Balance 117 Intake: Oral 118 Output: Emesis 1 Other: # Voids 1 1 1 Weight 77.111 kg Results 10/27/21 05:53 10/27/21 05:53 Cardiac Enzymes 10/26/21 10/26/21 10/26/21 Range/Units 12:17 12:17 14:21 AST 35 (17-59) U/L Troponin I <0.012 <0.012 (0.000-0.034) ng/mL 10/26/21 Range/Units 18:23 AST (17-59) U/L Troponin I <0.012 (0.000-0.034) ng/mL Coagulation 10/26/21 Range/Units 12:17 PT 10.5 (9.0-12.0) sec APTT 17.8 L (22.0-30.0) sec CBC 10/26/21 Range/Units 12:17 WBC 11.1 H (3.8-10.6) k/uL RBC 4.52 (4.30-5.90) m/uL Hgb 13.8 (13.0-17.5) gm/dL Hct 41.8 (39.0-53.0) % Plt Count 468 H (150-450) k/uL Comprehensive Metabolic Panel 10/26/21 Range/Units 12:17 Sodium 137 (137-145) mmol/L Potassium 4.6 (3.5-5.1) mmol/L Chloride 107 (98-107) mmol/L Carbon Dioxide 23 (22-30) mmol/L BUN 20 (9-20) mg/dL Creatinine 0.70 (0.66-1.25) mg/dL Glucose 152 H (74-99) mg/dL Calcium 9.4 (8.4-10.2) mg/dL AST 35 (17-59) U/L ALT 36 (4-49) U/L Alkaline Phosphatase 60 (38-126) U/L Total Protein 7.2 (6.3-8.2) g/dL Albumin 4.3 (3.5-5.0) g/dL Current Medications Generic Name Dose Route Start Last Admin Trade Name Freq PRN Reason Stop Dose Admin Acetaminophen 650 mg 10/27/21 05:09 10/27/21 05:25 Acetaminophen Tab 325 Mg Tab PO 650 mg Q4HR PRN Administration Fever and/ or Pain Amlodipine Besylate 5 mg 10/26/21 16:45 10/26/21 16:49 Amlodipine 5 Mg Tab PO 5 mg DAILY RUSSEL Administration Aspirin 81 mg 10/26/21 21:00 10/26/21 20:52 Aspirin 81 Mg PO 81 mg BID RUSSEL Administration Docusate Sodium 100 mg 10/26/21 21:00 10/26/21 20:52 Docusate 100 Mg Cap PO 100 mg BID RUSSEL Administration Hydralazine HCl 25 mg 10/26/21 16:41 Hydralazine Hcl 25 Mg Tab PO Q6HR PRN Blood Pressure - High Sodium Chloride 1,000 mls @ 100 mls/hr 10/26/21 16:45 10/27/21 02:35 Saline 0.9% IV 100 mls/hr .Q10H RUSSEL Administration Losartan Potassium 25 mg 10/26/21 16:45 10/26/21 17:53 Losartan 25 Mg Tab PO 25 mg DAILY RUSSEL Administration Naloxone HCl 0.2 mg 10/26/21 16:33 Naloxone 0.4 Mg/Ml 1 Ml Vial IV Q2M PRN Opioid Reversal Nitroglycerin 0.4 mg 10/26/21 13:27 Nitroglycerin Sl Tabs 0.4 Mg Tab SUBLINGUAL Q5M PRN Chest Pain Nitroglycerin 1 inch 10/26/21 18:00 10/27/21 05:26 Nitroglycerin Oint 1 Inch/Gm Packet TOPICAL Not Given Q6HR [facility] Ondansetron HCl 4 mg 10/26/21 18:05 Ondansetron 4 Mg/2 Ml Vial IVP Q4HR PRN Nausea And Vomiting Pantoprazole Sodium 40 mg 10/27/21 07:30 Pantoprazole 40 Mg Tablet PO [facility] Prochlorperazine Maleate 10 mg 10/26/21 13:26 Prochlorperazine 10 Mg Tab PO Q8H PRN Nausea Sodium Chloride 10 ml 10/26/21 21:00 10/26/21 20:52 Sodium Chloride 0.9% Flush 10 Ml Syringe IV Not Given BID RUSSEL Intake and Output 10/26/21 10/27/21 10/27/21 22:59 06:59 14:59 Intake Total 118 Output Total 1 Balance 117 Intake: Oral 118 Output: Emesis 1 Other: # Voids 1 1 1 Weight 77.111 kg 10/26/21 12:17 10/26/21 12:17
[2021-10-27 14:05] VITALS: BP 131/86; PULSE 72; RESP 16
--- NOTE | 2021-10-27 14:35 | P.DS ---
Providers Date of admission: 10/26/21 13:27 Expected date of discharge: 10/27/21 Attending physician: Tunde Cage MD Consults: 10/26/21 13:27 Consult Physician Urgent Consulting Provider: Luke Yang Consult Reason/Comments: cp Do you want consulting provider notified?: Yes Primary care physician: [facility] Course: History of physical illness Patient is a very pleasant 56 years old male patient who was recently here in the hospital for left hip surgery, patient was discharged home on aspirin twice a day for DVT prophylaxis, postoperative course uneventful. He has history of a call abuse currently not using any alcohol. He also has history of hypertension that is untreated and apparently is not on any antihypertensive regimen at home. Patient smokes cigarettes and uses marijuana. Patient presented to the emergency department with chest discomfort and had a cardiac workup including CTA which was negative few days ago. He was then discharged home today again presents with chest discomfort. He described this chest pain as pleuritic chest pain, doesn't really aggravates with physical activity and is present constantly. Patient also was noted to have diaphoresis and feeling cold. Chest x-ray EKG otherwise negative troponin negative. He was noted to have accelerated hypertension in emergency department. Patient is being admitted to hospital medicine service for further evaluation, echocardiogram cardiology consultation and chest pain rule out. Physical examination discharge: General: non toxic, no distress, appears at stated age Derm: warm, dry Head: atraumatic, normocephalic, symmetric Eyes: EOMI, no lid lag, anicteric sclera Mouth: no lip lesion, mucus membranes moist Cardiovascular: S1S2 reg, no murmur, positive posterior tibial pulse bilateral, Lungs: CTA bilateral, no rhonchi, no rales , no accessory muscle use Abdominal: soft, nontender to palpation, no guarding, no appreciable organome gloria Ext: no gross muscle atrophy, no edema, no contractures Neuro: CN II-XI grossly intact, no focal neuro deficits Psych: Alert, oriented, appropriate affect Hospital course in detail the problem list: Chest pain/discomfort Atypical chest pain cardiac workup negative here, recent hospital visit to ER reviewed, CTA at that time was negative for any acute findings Possibly due to accelerated hypertension Negative stress test Patient started on losartan 50 mg daily. Prescription was given on discharge Continue cardiac telemetry, continue to trend troponin Echocardiogram showed normal left ventricular systolic function and left atrial enlargement. Cardiology cleared the patient for discharge Accelerated hypertension Antihypertensive medication regimen started as above Hydralazine when necessary Recent left hip replacement surgery Patient was discharged on 10/17/2021 Continue DVT prophylaxis with aspirin twice a day Orthopedic consulted for evaluation Ongoing tobacco abuse Smoking cessation counseling Nicotine patch as needed Marijuana abuse Recommend quitting substance abuse Dyslipidemia -LDL 143 -Patient started on Lipitor 20 mg daily Patient Condition at Discharge: Stable Plan - Discharge Summary Discharge Rx Participant: No New Discharge Prescriptions: New Losartan [Cozaar] 50 mg PO DAILY #30 tab Atorvastatin [Lipitor] 20 mg PO HS #30 tab Continue Prochlorperazine [Compazine] 10 mg PO Q8H PRN PRN Reason: Nausea HYDROcodone/APAP 5-325MG [[place] 5-325] 1 - 2 tab PO Q6HR PRN #40 tab PRN Reason: Pain Omeprazole 40 mg PO DAILY 30 Days #30 cap Diclofenac Sodium [Voltaren] 75 mg PO BID 30 Days #60 tab Aspirin 81 mg PO BID 30 Days #60 tab Docusate [Colace] 100 mg PO BID #60 capsule Discontinued Doxycycline [Vibramycin] 100 mg PO BID 14 Days #28 capsule Discharge Medication List Prochlorperazine [Compazine] 10 mg PO Q8H PRN 10/14/21 [History] Aspirin 81 mg PO BID 30 Days #60 tab 10/16/21 [Rx] Diclofenac Sodium [Voltaren] 75 mg PO BID 30 Days #60 tab 10/16/21 [Rx] Docusate [Colace] 100 mg PO BID #60 capsule 10/16/21 [Rx] HYDROcodone/APAP 5-325MG [[place] 5-325] 1 - 2 tab PO Q6HR PRN #40 tab 10/16/21 [Rx] Omeprazole 40 mg PO DAILY 30 Days #30 cap 10/16/21 [Rx] Atorvastatin [Lipitor] 20 mg PO HS #30 tab 10/27/21 [Rx] Losartan [Cozaar] 50 mg PO DAILY #30 tab 10/27/21 [Rx] Follow up Appointment(s)/Referral(s): [facility], [NON-STAFF] - 1-2 Days Ole Ellison DO [Primary Care Provider] - 1-2 days Juan José Paez MD [Medical Doctor] - 1-2 Days (Hip Replacement follow up.) Discharge/Stand Alone Forms: Who Do I Call? Discharge Disposition: HOME SELF-CARE
--- NOTE | 2021-10-27 14:44 | ECHOS ---
STRESS ECHOCARDIOGRAM INDICATIONS: Chest pain BASELINE HEART RATE: 77 BASELINE BLOOD PRESSURE: 160/89 MAXIMUM HEART RATE: 145 MAXIMUM BLOOD PRESSURE: 158/71 85% MPHR: 139 100% MPHR: 162 METS: MAXIMUM STAGE REACHED: TOTAL EXERCISE TIME: RESULTS: Baseline EKG shows sinus rhythm, normal axis, normal intervals. Patient was given intravenous dobutamine over a period of 8.5 minutes achieving 89% of predicted maximal heart rate, without chest pain or diagnostic ST-segment depression. Baseline echo shows normal left ventricular size, wall motion and systolic function. Post dobutamine infusion, there is normal hyperdynamic response of all segments of myocardium noted. CONCLUSIONS: 1. Negative stress test by EKG criteria. 2. Negative dobutamine stress echo. MMODL / IJN: [id number] /
[2021-10-27] MEDS ORDERED: ATORVASTATIN 20 MG TAB PO SCH (21:00)
[2021-10-28] MEDS ORDERED: LOSARTAN 25 MG TAB PO SCH (09:00)
== END 2021-10-27 15:45 | disposition home or self-care (01) ==
LOC: EC 11:55 → 6NMEDSUR 13:27
PROVIDERS: ADMIT Internal Medicine; ATTEND Internal Medicine
DX: R07.89 Other chest pain (principal); I10 Essential (primary) hypertension; R61 Generalized hyperhidrosis; R06.02 Shortness of breath; R10.9 Unspecified abdominal pain; M19.90 Unspecified osteoarthritis, unspecified site; K57.90 Diverticulosis of intestine, part unspecified, without perforation or abscess without bleeding; E78.5 Hyperlipidemia, unspecified; F17.210 Nicotine dependence, cigarettes, uncomplicated; Z79.82 Long term (current) use of aspirin; Z79.1 Long term (current) use of non-steroidal anti-inflammatories (NSAID); Z79.899 Other long term (current) drug therapy; Z87.442 Personal history of urinary calculi; Z98.890 Other specified postprocedural states; Z96.642 Presence of left artificial hip joint; Z71.6 Tobacco abuse counseling
CPT/HCPCS: 96374; 99285; 36415; 93005; 93306; 93351; 85379; 80061; 80053; 80048; 82150; 83690; 83735; 84484; 85025 ×2; 85610; 85730; 87040; 71046; G0378 ×2; J1250; J2270

== ENCOUNTER 2023-10-24 23:11 | Emergency (ER) | payer BC ==
--- NOTE | 2023-10-24 23:27 | ED ---
Nausea/Vomiting/Diarrhea HPI - General Source: patient, RN notes reviewed Mode of arrival: ambulatory Limitations: no limitations <Jenni Moreno - Last Filed: 10/29/23 06:35> - General Source: patient, RN notes reviewed, old records reviewed Mode of arrival: ambulatory Limitations: no limitations - History of Present Illness MD complaint: nausea, vomiting, diarrhea, abdominal pain -: hour(s) Description of Vomiting: food contents, watery, bilious Location: diffuse, LUQ Severity: severe Quality: cramping, stabbing Consistency: constant Improves with: none Worsens with: none Associated Symptoms: loss of appetite, malaise, nausea/vomiting <Jarrell Joyner - Last Filed: 11/04/23 22:43> - General Chief complaint: Nausea/Vomiting/Diarrhea Stated complaint: Chest pain, abd pain, vomiting Time Seen by Provider: 10/24/23 23:27 - History of Present Illness Initial comments: Quick note: 58-year-old male presented to the ER with a chief complaint of nausea and vomiting. He states he woke up this morning around 9 AM and was ronda phoretic. He stands all day has been unable to keep anything down as he is nauseous. He is reporting left upper quadrant abdominal tenderness. He also reports chills all day. (Jenni Moreno) This is a 58-year-old male to the ER for nausea vomiting nausea vomiting abdominal pain with diaphoresis and left upper quadrant abdominal pain. Symptoms are severe and worsening (Jarrell Joyner) - Related Data Home Medications Medication Instructions Recorded Confirmed Prochlorperazine [Compazine] 10 mg PO Q8H PRN 10/14/21 10/26/21 Previous Rx's Medication Instructions Recorded Aspirin 81 mg PO BID 30 Days #60 tab 10/16/21 Diclofenac Sodium [Voltaren] 75 mg PO BID 30 Days #60 tab 10/16/21 Docusate [Colace] 100 mg PO BID #60 capsule 10/16/21 HYDROcodone/APAP 5-325MG [[place] 1 - 2 tab PO Q6HR PRN #40 tab 10/16/21 5-325] Omeprazole 40 mg PO DAILY 30 Days #30 cap 10/16/21 Atorvastatin [Lipitor] 20 mg PO HS #30 tab 06/28/22 Losartan [Cozaar] 50 mg PO DAILY #30 tab 10/27/21 Allergies Allergy/AdvReac Type Severity Reaction Status Date / Time No Known Allergies Allergy Verified 10/24/23 23:18 Review of Systems ROS Other: All systems not noted in ROS Statement are negative. <Jenni Moreno - Last Filed: 10/29/23 06:35> ROS Other: All systems not noted in ROS Statement are negative. <Jarrell Joyner - Last Filed: 11/04/23 22:43> ROS Statement: Those systems with pertinent positive or pertinent negative responses have been documented in the HPI. Past Medical History Past Medical History: Hypertension, Osteoarthritis (OA) Additional Past Medical History / Comment(s): hx kidney stone, diverticulitis, took BP med in the past but not needed currently per pt. History of Any Multi-Drug Resistant Organisms: None Reported Past Surgical History: Orthopedic Surgery Additional Past Surgical History / Comment(s): tendon repair rt arm, arthroscopic knee surg. Past Anesthesia/Blood Transfusion Reactions: No Reported Reaction Past Psychological History: No Psychological Hx Reported Smoking Status: Current every day smoker Past Alcohol Use History: Occasional Past Drug Use History: Marijuana - Past Family History Mother Family Medical History: No Reported History <Jenni Moreno - Last Filed: 10/29/23 06:35> General Exam Limitations: no limitations <Jenni Moreno - Last Filed: 10/29/23 06:35> General appearance: alert, in no apparent distress Head exam: Present: atraumatic, normocephalic, normal inspection Eye exam: Present: normal appearance, PERRL, EOMI. Absent: scleral icterus, conjunctival injection, periorbital swelling ENT exam: Present: normal exam, mucous membranes moist Neck exam: Present: normal inspection. Absent: tenderness, meningismus, lymphad enopathy Respiratory exam: Present: normal lung sounds bilaterally. Absent: respiratory distress, wheezes, rales, rhonchi, stridor Cardiovascular Exam: Present: regular rate, normal rhythm, normal heart sounds. Absent: systolic murmur, diastolic murmur, rubs, gallop, clicks GI/Abdominal exam: Present: soft, normal bowel sounds. Absent: distended, tenderness, guarding, rebound, rigid Extremities exam: Present: normal inspection, full ROM, normal capillary refill. Absent: tenderness, pedal edema, joint swelling, calf tenderness Back exam: Present: normal inspection Neurological exam: Present: alert, oriented X3, CN II-XII intact Psychiatric exam: Present: normal affect, normal mood Skin exam: Present: warm, dry, intact, normal color. Absent: rash <Jarrell Joyner - Last Filed: 11/04/23 22:43> - General Exam Comments Initial Comments: Visual Physical Exam Vital signs reviewed General: Well-appearing, nontoxic, no acute distress. Head: Normocephalic, atraumatic Eyes: PERRLA, EOMI ENT: Airway patent Chest: Nonlabored breathing Skin: No visual rash, normal skin tone Neuro: Alert and oriented 3 Musculoskeletal: No gross abnormalities (Jenni Moreno) Course <Jarrell Joyner - Last Filed: 11/04/23 22:43> Vital Signs 10/24/23 10/25/23 10/25/23 23:15 04:43 09:59 Temperature 99.0 F 98.1 F Pulse Rate 97 97 84 Respiratory 18 14 18 Rate Blood Pressure 175/95 176/98 169/84 O2 Sat by Pulse 99 97 99 Oximetry - Reevaluation(s) Reevaluation #1: 10/25/23 05:12 Medical records reviewed (Jarrell Joyner) Reevaluation #2: 10/25/23 05:12 Patient symptoms improved (Jarrell Joyner) Reevaluation #3: 10/25/23 05:12 Patient informed of results and questions answered (Jarrell Joyner) Reevaluation #4: 10/25/23 05:12 Was pt. sent in by a medical professional or institution (, PA, DAIRY INSPECTOR, urgent care, hospital, or senior care...) When possible be specific @ -no Did you speak to anyone other than the patient for history (EMS, parent, family, police, friend...)? What history was obtained from this source @ -no Did you review nursing and triage notes (agree or disagree)? Why? @ -agree Are old charts reviewed (outside hosp., previous admission, EMS record, old EKG, old radiological studies, urgent care reports/EKG's, senior care records)? Report findings @ -yes Differential Diagnosis (chest pain, altered mental status, abdominal pain women, abdominal pain men, vaginal bleeding, weakness, fever, dyspnea, syncope, hea dache, dizziness, GI bleed, back pain, seizure, CVA, palpatations, mental health, musculoskeletal)? @ -prior EKG interpreted by me (3pts min.). @ -yes X-rays interpreted by me (1pt min.). @ -yes negative for acute disease CT interpreted by me (1pt min.). @ -Yes negative for acute disease U/S interpreted by me (1pt. min.). @ -no What testing was considered but not performed or refused? (CT, X-rays, U/S, labs)? Why? @ -none What meds were considered but not given or refused? Why? @ -none Did you discuss the management of the patient with other professionals (professionals i.e. , PA, DAIRY INSPECTOR, lab, RT, psych nurse, social welfare research worker, tooling engineering tech, teacher, protective services officer, onsite case manager)? Give summary @ -no Was smoking cessation discussed for >3mins.? @ -no Was critical care preformed (if so, how long)? @ -no Were there social determinants of health that impacted care today? How? (Homelessness, low income, unemployed, alcoholism, drug addiction, transportation, low edu. Level, literacy, decrease access to med. care, fci, rehab)? @ -none Was there de-escalation of care discussed even if they declined (Discuss DNR or withdrawal of care, Hospice)? DNR status @ -no What co-morbidities impacted this encounter? (DM, HTN, Smoking, COPD, CAD, Cancer, CVA, ARF, Chemo, Hep., AIDS, mental health diagnosis, sleep apnea, morbid obesity)? @ -none Was patient admitted / discharged? Hospital course, mention meds given and route, prescriptions, significant lab abnormalities, going to OR and other pertinent info. @ - 58 male with abdominal pain. Abdominal pain chest pain with no acute cause found. Patient feels well can be discharged home Discharge Undiagnosed new problem with uncertain prognosis? @ -no Drug Therapy requiring intensive monitoring for toxicity (Heparin, Nitro, Insulin, Cardizem)? @ -no Were any procedures done? @ -no Diagnosis/symptom? @ -Abdominal pain Acute, or Chronic, or Acute on Chronic? @ -Acute Uncomplicated (without systemic symptoms) or Complicated (systemic symptoms)? @ -Complicated Side effects of treatment? @ -no Exacerbation, Progression, or Severe Exacerbation? @ -exacerbation Poses a threat to life or bodily function? How? (Chest pain, [place], [place], pneumonia, PE, COPD, DKA, ARF, appy, cholecystitis, CVA, Diverticulitis, Homicidal, Suicidal, threat to staff... and all critical care pts) @ -no (Jarrell Joyner) Medical Decision Making - Lab Data Result diagrams: 10/24/23 23:33 10/24/23 23:33 <Jenni Moreno - Last Filed: 10/29/23 06:35> - Lab Data Result diagrams: 10/24/23 23:33 10/24/23 23:33 - Radiology Data Radiology results: report reviewed (X-ray KUB CT abdomen pelvis negative for acute disease), image reviewed <Jarrell Joyner - Last Filed: 11/04/23 22:43> - Medical Decision Making I performed the quick note portion of this chart. Electronically signed by Jenni Moreno PA-C (Jenni Moreno) 58 male with abdominal pain. Abdominal pain chest pain with no acute cause found. Patient feels well can be discharged home (Jarrell Joyner) - Lab Data Lab Results 10/24/23 10/24/23 10/25/23 Range/Units 23:33 23:33 03:01 WBC 13.0 H (3.8-10.6) k/uL RBC 5.65 (4.30-5.90) m/uL Hgb 17.0 (13.0-17.5) gm/dL Hct 53.0 (39.0-53.0) % MCV 93.8 (80.0-100.0) fL MCH 30.1 (25.0-35.0) pg MCHC 32.1 (31.0-37.0) g/dL RDW 12.7 (11.5-15.5) % Plt Count 410 (150-450) k/uL MPV 7.1 Neutrophils % 84 % Lymphocytes % 11 % Monocytes % 3 % Eosinophils % 1 % Basophils % 0 % Neutrophils # 10.9 H (1.3-7.7) k/uL Lymphocytes # 1.4 (1.0-4.8) k/uL Monocytes # 0.4 (0-1.0) k/uL Eosinophils # 0.1 (0-0.7) k/uL Basophils # 0.0 (0-0.2) k/uL Sodium 141 (137-145) mmol/L Potassium 4.1 (3.5-5.1) mmol/L Chloride 95 L (98-107) mmol/L Carbon Dioxide 24 (22-30) mmol/L Anion Gap 22 mmol/L BUN 19 (9-20) mg/dL Creatinine 0.76 (0.66-1.25) mg/dL Est GFR (CKD-EPI)AfAm >90 (>60 ml/min/1.73 sqM) Est GFR (CKD-EPI)NonAf >90 (>60 ml/min/1.73 sqM) Glucose 141 H (74-99) mg/dL Calcium 10.4 H (8.4-10.2) mg/dL Total Bilirubin 0.7 (0.2-1.3) mg/dL AST 28 (17-59) U/L ALT 40 (4-49) U/L Alkaline Phosphatase 78 (38-126) U/L Total Protein 8.5 H (6.3-8.2) g/dL Albumin 5.2 H (3.5-5.0) g/dL Amylase 71 (30-110) U/L Lipase 111 (23-300) U/L Urine Color Light Yellow Urine Appearance Clear (Clear) Urine pH 6.5 (5.0-8.0) Ur Specific [place] >1.050 H (1.001-1.035) Urine Protein 1+ H (Negative) Urine Glucose (UA) Trace H (Negative) Urine Ketones Negative (Negative) Urine Blood Trace H (Negative) Urine Nitrite Negative (Negative) Urine Bilirubin Negative (Negative) Urine Urobilinogen <2.0 (<2.0) mg/dL Ur Leukocyte Esterase Negative (Negative) Urine RBC 2 (0-5) /hpf Urine WBC <1 (0-5) /hpf Hyaline Casts 3 H (0-2) /lpf Urine Mucus Few H (None) /hpf Disposition <Jenni Moreno - Last Filed: 10/29/23 06:35> Is patient prescribed a controlled substance at d/c from ED?: No Time of Disposition: 07:00 <Jarrell Joyner - Last Filed: 11/04/23 22:43> Clinical Impression: Chest pain, Abdominal pain Disposition: HOME SELF-CARE Condition: Fair Instructions (If sedation given, give patient instructions): Abdominal Pain (ED), Acute Nausea and Vomiting (ED) Referrals: Ole Ellison DO [Primary Care Provider] - 1-2 days
[2023-10-24 23:42] LABS: Basophils % (A) 0 %; Eosinophils # (A) 0.1 k/uL (0-0.7); Eosinophils % (A) 1 %; Lymphocytes # (A) 1.4 k/uL (1.0-4.8); Lymphocytes % (A) 11 %; MCH 30.1 pg (25.0-35.0); MCHC 32.1 g/dL (31.0-37.0); MCV 93.8 fL (80.0-100.0); Mean Platelet Volume 7.1; Monocytes # (A) 0.4 k/uL (0-1.0); Monocytes % (A) 3 %; Neutrophils # (A) 10.9 k/uL (1.3-7.7); Neutrophils % (A) 84 %; Platelet Count 410 k/uL (150-450); RBC 5.65 m/uL (4.30-5.90); RDW 12.7 % (11.5-15.5)
[2023-10-24 23:58] LABS: Potassium 4.1 mmol/L (3.5-5.1); Sodium 141 mmol/L (137-145)
[2023-10-24 23:59] LABS: ALT 40 U/L (4-49); AST 28 U/L (17-59); African American GFR (CKD) >90 (>60 ml/min/1.73 sqM); Albumin 5.2 g/dL (3.5-5.0); Alkaline Phosphatase 78 U/L (38-126); Amylase 71 U/L (30-110); Anion Gap 22 mmol/L; Blood Urea Nitrogen 19 mg/dL (9-20); Calcium 10.4 mg/dL (8.4-10.2); Carbon Dioxide 24 mmol/L (22-30); Chloride 95 mmol/L (98-107); Glucose 141 mg/dL (74-99); Lipase 111 U/L (23-300); Non-African American GFR(CKD) >90 (>60 ml/min/1.73 sqM); Total Bilirubin 0.7 mg/dL (0.2-1.3); Total Protein 8.5 g/dL (6.3-8.2)
--- NOTE | 2023-10-25 01:44 | XR ---
EXAM: XR Abdomen, 1 View CLINICAL HISTORY: ITS.REASON XR Reason: pain TECHNIQUE: Frontal supine view of the abdomen/pelvis. COMPARISON: No relevant prior studies available. FINDINGS: Gastrointestinal tract: Unremarkable. No dilation. Bones/joints: LEFT hip ORIF. No acute fracture. IMPRESSION: No acute findings.
[2023-10-25] MEDS: SODIUM CHLORIDE 0.9% 1,000 ML IV STA ×2 (03:10→09:14)
[2023-10-25] MEDS: ONDANSETRON 4 MG/2 ML VIAL IVP STA (03:10)
[2023-10-25] MEDS: KETOROLAC 15 MG/ML 1 ML VIAL IVP STA (03:12)
[2023-10-25 04:07] LABS: Appearance,Urine Clear (Clear); Bilirubin,Urine Negative (Negative); Blood,Urine Trace (Negative); Color,Urine Light Yellow; Glucose,Urine (UA) Trace (Negative); Hyaline Casts,Urine 3 /lpf (0-2); Ketones,Urine Negative (Negative); Leukocyte Esterase,Urine Negative (Negative); Mucus,Urine Few /hpf; Nitrite,Urine Negative (Negative); PH, Urine 6.5 (5.0-8.0); Protein,Urine 1+ (Negative); RBC,Urine 2 /hpf (0-5); Urobilinogen,Urine <2.0 mg/dL (<2.0); WBC,Urine <1 /hpf (0-5)
[2023-10-25 04:28] LABS: Specific Gravity,Urine >1.050 (1.001-1.035)
[2023-10-25 04:45] VITALS: TEMP 98.1
--- NOTE | 2023-10-25 05:27 | CT ---
EXAM: CT Abdomen and Pelvis With Intravenous Contrast CLINICAL HISTORY: ITS.REASON CT Reason: pain TECHNIQUE: Axial computed tomography images of the abdomen and pelvis with intravenous contrast. CTDI is 17.5 mGy and DLP is 818 mGy-cm. This CT exam was performed using one or more of the following dose reduction techniques: automated exposure control, adjustment of the mA and/or kV according to patient size, and/or use of iterative reconstruction technique. COMPARISON: No relevant prior studies available. FINDINGS: Lung bases: Unremarkable. No mass. No consolidation. ABDOMEN: Liver: Unremarkable. No mass. Gallbladder and bile ducts: Unremarkable. No calcified stones. No ductal dilation. Pancreas: Unremarkable. No mass. No ductal dilation. Spleen: Unremarkable. No splenomegaly. Adrenals: Unremarkable. No mass. Kidneys and ureters: Unremarkable. No solid mass. No hydronephrosis. Stomach and bowel: Colonic diverticulosis. No evidence of diverticulitis. No evidence of bowel obstruction. PELVIS: Appendix: Normal appendix. Bladder: Unremarkable. No mass. Reproductive: Unremarkable as visualized. ABDOMEN and PELVIS: Intraperitoneal space: Unremarkable. No free air. No significant fluid collection. Bones/joints: Left total hip arthroplasty changes. Degenerative changes in the spine. No acute fracture. No dislocation. Soft tissues: Umbilical hernia containing fat. Right inguinal hernia containing fat. 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 Atherosclerotic calcifications. Lymph nodes: Unremarkable. No enlarged lymph nodes. IMPRESSION: 1. Colonic diverticulosis. No evidence of diverticulitis. 2. Normal appendix. 3. No evidence of bowel obstruction. 4. 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 5. No other acute findings. 6. His no findings as described.
[2023-10-25] MEDS: PROCHLORPERAZINE INJ 10 MG/2 ML VIAL IVP STA (05:30)
[2023-10-25] MEDS: SODIUM CHLORIDE 0.9% 1,000 ML BAG IV STA ×2 (05:31→09:18)
[2023-10-25] MEDS: PANTOPRAZOLE 40 MG/10 ML VIAL IV STA (09:19)
[2023-10-25] MEDS: traMADol 50 MG STARTER PACK 3 TAB BTL PO STA (09:19)
[2023-10-25] MEDS: MAG HYDROX/AL HYDROX/SIMETH 30 ML, HYOSCYAMINE ELIXIR 10 ML, LIDOCAINE VISCOUS 2% 10 ML PO STA (09:19)
[2023-10-25] MEDS: SUCRALFATE 1 GM TAB PO STA (09:20)
[2023-10-25] MEDS: ONDANSETRON 4 MG ODT STARTER PACK 2 TAB BTL PO STA (09:20)
[2023-10-25 10:00] VITALS: BP 169/84; PULSE 84; RESP 18
== END 2023-10-25 10:00 | disposition home or self-care (01) ==
LOC: EC 23:11
DX: K57.30 Diverticulosis of large intestine without perforation or abscess without bleeding (principal); R07.9 Chest pain, unspecified; F17.200 Nicotine dependence, unspecified, uncomplicated
CPT/HCPCS: 36415; 93005; 80053; 82150; 83690; 85025; 81001; 74018; 74177; 99285; 96374; 96375 ×3; 96361 ×3; J0780; J2405; J1885; S0119; C9113; Q9967

== ENCOUNTER → 2023-12-30 | Outpatient (CLI) | payer BC ==
--- NOTE | 2023-12-30 11:39 | CTL ---
EXAMINATION TYPE: CT Low Dose Lung DATE OF EXAM ORDERED: 12/30/2023 HISTORY: . Lung cancer screening CT DLP: 110.[address] CTDI: 2.8 mGy Automated exposure control for dose reduction was used. SCREENING VISIT: COMPARISON: 10/24/2021 TECHNIQUE: Low dose computed tomography scan was performed through the chest at 1 mm thick sections a nd reconstructed images in multiple planes at 1 mm and [address] DIAGNOSTIC QUALITY: Satisfactory FINDINGS: Heart size normal. Atherosclerotic change of the aorta which is of normal caliber. No signi ficant coronary artery calcification. Trace of pericardial fluid. Airway is patent. No consolidative pneumonia. There is calcification near the aortic valve. Assessmen t for adenopathy is limited due to lack of contrast. No obvious pathologic adenopathy. Mild emphysematous changes. No suspicious pulmonary nodules or masses. No sizable pulmonary nodules. IMPRESSION: 1. Mild COPD with no sizable pulmonary nodule. CT LUNG RAD AND CT CHEST RECOMMENDATION: Lung-Rad 1 Negative: Continue annual screening with LDCT in 12 months.
== END | disposition home or self-care (01) ==
LOC: RADCTMAIN 10:36
PROVIDERS: ATTEND Family Medicine
DX: Z12.2 Encounter for screening for malignant neoplasm of respiratory organs (principal); J44.9 Chronic obstructive pulmonary disease, unspecified; F17.210 Nicotine dependence, cigarettes, uncomplicated
CPT/HCPCS: 71271

== ENCOUNTER 2024-03-28 04:08 | Emergency (ER) | payer BC ==
[2024-03-28 04:18] VITALS: TEMP 98.3
[2024-03-28] MEDS: KETOROLAC 15 MG/ML 1 ML VIAL IVP STA (05:14)
[2024-03-28] MEDS: MORPHINE SULFATE 4 MG/ML SYRINGE IVP STA (05:15)
[2024-03-28] MEDS: ONDANSETRON 4 MG/2 ML VIAL IVP STA (05:18)
[2024-03-28] MEDS: SODIUM CHLORIDE 0.9% 1,000 ML IV ONE (05:20)
[2024-03-28 05:21] LABS: Basophils # (A) 0.1 k/uL (0-0.2); Basophils % (A) 0 %; Eosinophils # (A) 0.4 k/uL (0-0.7); Eosinophils % (A) 3 %; HCT 46.5 % (39.0-53.0); HGB 15.2 gm/dL (13.0-17.5); Lymphocytes # (A) 2.6 k/uL (1.0-4.8); Lymphocytes % (A) 17 %; MCH 30.1 pg (25.0-35.0); MCHC 32.6 g/dL (31.0-37.0); MCV 92.3 fL (80.0-100.0); Mean Platelet Volume 6.5; Monocytes # (A) 0.7 k/uL (0-1.0); Monocytes % (A) 5 %; Neutrophils # (A) 10.6 k/uL (1.3-7.7); Neutrophils % (A) 72 %; Platelet Count 398 k/uL (150-450); RBC 5.04 m/uL (4.30-5.90); RDW 12.7 % (11.5-15.5); WBC 14.7 k/uL (3.8-10.6)
[2024-03-28 05:35] LABS: Appearance,Urine Clear (Clear); Bilirubin,Urine Negative (Negative); Blood,Urine Large (Negative); Calcium Oxalate Crystals,Urine Many /hpf; Color,Urine Yellow; Glucose,Urine (UA) Negative (Negative); Ketones,Urine Negative (Negative); Leukocyte Esterase,Urine Negative (Negative); Mucus,Urine Occasional /hpf; Nitrite,Urine Negative (Negative); Protein,Urine Trace (Negative); RBC,Urine >182 /hpf (0-5); Specific Gravity,Urine 1.026 (1.001-1.035); Urobilinogen,Urine <2.0 mg/dL (<2.0); WBC,Urine 6 /hpf (0-5)
[2024-03-28 05:35] LABS: INR 0.9 (<1.2); Partial Thromboplastin Time 26.2 sec (22.0-30.0); Prothrombin Time 10.5 sec (10.0-12.5)
[2024-03-28 05:46] LABS: ALT 22 U/L (4-49); AST 23 U/L (17-59); African American GFR (CKD) 80 (>60 ml/min/1.73 sqM); Albumin 4.2 g/dL (3.5-5.0); Alkaline Phosphatase 83 U/L (38-126); Anion Gap 6 mmol/L; Blood Urea Nitrogen 27 mg/dL (9-20); Calcium 9.5 mg/dL (8.4-10.2); Carbon Dioxide 25 mmol/L (22-30); Chloride 104 mmol/L (98-107); Glucose 112 mg/dL (74-99); Non-African American GFR(CKD) 69 (>60 ml/min/1.73 sqM); Potassium 4.5 mmol/L (3.5-5.1); Sodium 135 mmol/L (137-145); Total Bilirubin 0.4 mg/dL (0.2-1.3); Total Protein 7.1 g/dL (6.3-8.2)
--- NOTE | 2024-03-28 06:45 | CT ---
EXAM: CT Abdomen and Pelvis Without Intravenous Contrast CLINICAL HISTORY: Left flank pain, hematuria TECHNIQUE: Axial computed tomography images of the abdomen and pelvis without intravenous contrast. CTDI is 9.7 mGy and DLP is 587.2 mGy-cm. This CT exam was performed using one or more of the following dose reduction techniques: automated exposure control, adjustment of the mA and/or kV according to patient size, and/or use of iterative reconstruction technique. COMPARISON: September 09, 2021 FINDINGS: ABDOMEN: Liver: Unremarkable. Gallbladder and bile ducts: Unremarkable. No calcified stones. No ductal dilation. Pancreas: Unremarkable. No ductal dilation. Spleen: Unremarkable. No splenomegaly. Adrenals: Unremarkable. No mass. Kidneys and ureters: Mild to moderate left hydroureteronephrosis with obstructing 2 mm calculus in the distal left ureter just before the UVJ. Stomach and bowel: Diverticulosis without diverticulitis. No obstruction. PELVIS: Appendix: No findings to suggest acute appendicitis. Bladder: Unremarkable. No stones. ABDOMEN and PELVIS: Intraperitoneal space: Unremarkable. No free air. No significant fluid collection. Bones/joints: No acute findings. Soft tissues: Unremarkable. Vasculature: Unremarkable. No abdominal aortic aneurysm. Lymph nodes: Unremarkable. No enlarged lymph nodes. IMPRESSION: Mild to moderate left hydroureteronephrosis with obstructing 2 mm calculus in the distal left ureter just before the UVJ. Plan:
--- NOTE | 2024-03-28 07:43 | ED ---
General Adult HPI - General Chief complaint: Abdominal Pain Stated complaint: Hematuria, Pain in groin Time Seen by Provider: 03/28/24 04:45 Source: patient Mode of arrival: ambulatory Limitations: no limitations - History of Present Illness Initial comments: Pt is a 58 y/o male presenting for left sided flank pain that radiates towards the groin and associated difficulty urinating. Pain starts in left flank and is sharp in nature. States has hx prior kidney stones but this pain is different than prior. With onset of this pain patient has noticed a small amount of hematuria, has increased urgency and is having difficulty urinating. + nausea. Denies prior abdominal surgeries, vomiting, diarrhea, constipation, testicular pain or redness, penile discharge, hematochezia or melena or fever. - Related Data Home Medications Medication Instructions Recorded Confirmed Prochlorperazine [Compazine] 10 mg PO Q8H PRN 10/14/21 10/26/21 Previous Rx's Medication Instructions Recorded Aspirin 81 mg PO BID 30 Days #60 tab 10/16/21 Diclofenac Sodium [Voltaren] 75 mg PO BID 30 Days #60 tab 10/16/21 Docusate [Colace] 100 mg PO BID #60 capsule 10/16/21 HYDROcodone/APAP 5-325MG [[place] 1 - 2 tab PO Q6HR PRN #40 tab 10/16/21 5-325] Omeprazole 40 mg PO DAILY 30 Days #30 cap 10/16/21 Atorvastatin [Lipitor] 20 mg PO HS #30 tab 10/27/21 Losartan [Cozaar] 50 mg PO DAILY #30 tab 10/27/21 Ketorolac [Toradol] 10 mg PO Q12HR #15 tab 03/28/24 Tamsulosin [Flomax] 0.4 mg PO DAILY 5 Days #5 cap 03/28/24 Allergies Allergy/AdvReac Type Severity Reaction Status Date / Time No Known Allergies Allergy Verified 03/28/24 04:18 Review of Systems ROS Statement: Those systems with pertinent positive or pertinent negative responses have been documented in the HPI. ROS Other: All systems not noted in ROS Statement are negative. Past Medical History Past Medical History: Hypertension, Osteoarthritis (OA) Additional Past Medical History / Comment(s): hx kidney stone, diverticulitis, took BP med in the past but not needed currently per pt. History of Any Multi-Drug Resistant Organisms: None Reported Past Surgical History: Orthopedic Surgery Additional Past Surgical History / Comment(s): tendon repair rt arm, arthroscopic knee surg. Past Anesthesia/Blood Transfusion Reactions: No Reported Reaction Past Psychological History: No Psychological Hx Reported Smoking Status: Current every day smoker Past Alcohol Use History: Occasional Past Drug Use History: Marijuana - Past Family History Mother Family Medical History: No Reported History General Exam - General Exam Comments Initial Comments: PE: CONSTITUTIONAL: Mild distress 2/2 pain, otherwise well appearing SKIN: Warm, dry, no jaundice, hives or petechiae EYES: Pupils are equally round, extraocular movements intact without nystagmus, clear conjunctiva, non-icteric sclera HENT: Normocephalic, atraumatic, moist mucus membranes, oropharynx clear without exudates NECK: , Full range of motion, normal appearance PULMONARY: Clear to auscultation without wheezes, rhonchi, or rales, normal excursion, no accessory muscle use and no stridor CARDIOVASCULAR: Regular rate, rhythm, normal S1 and S2. No appreciated murmurs, rubs or gallops. Strong radial pulses with intact distal perfusion. No lower extremity edema GASTROINTESTINAL: Soft, active bowel sounds throughout,TTP in far LLQ, +Left CVA TTP, no hernias or masses palpated , non-distended, no rebound or guarding. No hepatosplenomegaly GENITOURINARY: Performed with RN, at bedside as three knife trimmer, no testicular swelling or TTP, no erythema or skin changes, no hernias palpated, no blood or discharge at urethral meatus MUSCULOSKELETAL: Extremities have no gross deformity, no edema, redness, or swelling. No calf swelling NEUROLOGIC:_a/o x 3, GCS 15, normal mentation and speech. Moves all extremities x 4 without motor or sensory deficit PSYCHIATRIC:_normal mood and affect, thought process is clear and linear Limitations: no limitations Course Vital Signs 03/28/24 03/28/24 03/28/24 04:15 06:18 07:57 Temperature 98.3 F Pulse Rate 99 83 82 Respiratory 20 16 18 Rate Blood Pressure 166/96 146/90 122/71 O2 Sat by Pulse 99 96 98 Oximetry Medical Decision Making - Medical Decision Making Was pt. sent in by a medical professional or institution (, PA, SPORTS MARKETING SPECIALIST, urgent care, hospital, or shelter...) When possible be specific @ -No Did you speak to anyone other than the patient for history (EMS, parent, family, police, friend...)? What history was obtained from this source @ -No Did you review nursing and triage notes (agree or disagree)? Why? @ -I reviewed and agree with nursing and triage notes Were old charts reviewed (outside hosp., previous admission, EMS record, old EKG, old radiological studies, urgent care reports/EKG's, shelter records)? Report findings @ -Medical records reviewed Differential Diagnosis (chest pain, altered mental status, abdominal pain women, abdominal pain men, vaginal bleeding, weakness, fever, dyspnea, syncope, headache, dizziness, GI bleed, back pain, seizure, CVA, palpatations, mental health, musculoskeletal)? @ -Differential Abdominal Pain Men: Appendicitis, cholecystitis, diverticulosis, ischemic bowel, pancreatitis, hepatitis, UTI, gastroenteritis, AAA, incarcerated hernia, bowel obstruction, constipation, inflammatory bowel, hepatitis, peptic ulcer disease, splenic infarction, perforated viscus, testicular torsion, this is not meant to be an all-inclusive list; Highly suspect ureterolithiasis EKG interpreted by me (3pts min.). @ -As above X-rays interpreted by me (1pt min.). @ -None done CT interpreted by me (1pt min.). @ -mild left hydronephrosis U/S interpreted by me (1pt. min.). @ -None done What testing was considered but not performed or refused? (CT, X-rays, U/S, labs)? Why? @ -None What meds were considered but not given or refused? Why? @ -None Did you discuss the management of the patient with other professionals (professionals i.e. , PA, SPORTS MARKETING SPECIALIST, lab, RT, psych nurse, utility worker film processing, ceo & co founder, teacher, chief technology officer, case making machine operator)? Give summary @ -No Was smoking cessation discussed for >3mins.? @ -No Was critical care preformed (if so, how long)? @ -No Were there social determinants of health that impacted care today? How? (Homel essness, low income, unemployed, alcoholism, drug addiction, transportation, low edu. Level, literacy, decrease access to med. care, long-term, rehab)? @ -No Was there de-escalation of care discussed even if they declined (Discuss DNR or withdrawal of care, Hospice)? @ -No What co-morbidities impacted this encounter? (DM, HTN, Smoking, COPD, CAD, Cancer, CVA, ARF, Chemo, Hep., AIDS, mental health diagnosis, sleep apnea, morbid obesity)? @ -None Was patient admitted / discharged? Hospital course, mention meds given and route, prescriptions, significant lab abnormalities, [facility]. @ -Discharged- Pt is a pleasant 58 y/o male presenting for left flank, LLQ abdominal pain and difficulty urinating x 1 night. VSS on arrival. On my assessment pt painful appearing, + left CVA TTP, small amount of TTP distal LLQ w/o masses or hernias. Discussed plans for CT, UA, labs, fluids, pain control. Pt agreeable with POC. CT showed Mild to moderate left hydroureteronephrosis 2 mm calculus in the distal left ureter just before the UVJ. On my reassessment patient states pain has improved and he is able to urinate without difficulty. Given improvment of symptoms, size of stone, no UTI, plan for discharge with urology follow up. Pt agreeable with plan of care. Discharged with flomax. In my medical judgment there is currently no evidence of an immediate life- threatening or surgical condition. Discharge is therefore indicated at this time. Discharge treatment instructions, follow up instructions, and appropriate emergency department return precautions were discussed with the patient and/or medical decision maker. Patient and/or medical decision maker expressed und erstanding of and agreed with the treatment plan, follow up instructions, and emergency department return precaution. All patient's and/or medical decision maker's questions were answered. Undiagnosed new problem with uncertain prognosis? @ -No Drug Therapy requiring intensive monitoring for toxicity (Heparin, Nitro, Insulin, Cardizem)? @ -No Were any procedures done? @ -No Diagnosis/symptom? @Ureteroliasis Acute, or Chronic, or Acute on Chronic? @ Acute Uncomplicated (without systemic symptoms) or Complicated (systemic symptoms)? @ -uncomplicated Side effects of treatment? @ -No Exacerbation, Progression, or Severe Exacerbation? @ -No Poses a threat to life or bodily function? How? (Chest pain, [place], [place], pneumonia, PE, COPD, DKA, ARF, appy, cholecystitis, CVA, Diverticulitis, Homicidal, Suicidal, threat to staff... and all critical care pts) @ -No - Lab Data Result diagrams: 03/28/24 05:09 03/28/24 05:09 Lab Results 03/28/24 03/28/24 03/28/24 Range/Units 04:40 05:09 05:09 WBC 14.7 H (3.8-10.6) k/uL RBC 5.04 (4.30-5.90) m/uL Hgb 15.2 (13.0-17.5) gm/dL Hct 46.5 (39.0-53.0) % MCV 92.3 (80.0-100.0) fL MCH 30.1 (25.0-35.0) pg MCHC 32.6 (31.0-37.0) g/dL RDW 12.7 (11.5-15.5) % Plt Count 398 (150-450) k/uL MPV 6.5 Neutrophils % 72 % Lymphocytes % 17 % Monocytes % 5 % Eosinophils % 3 % Basophils % 0 % Neutrophils # 10.6 H (1.3-7.7) k/uL Lymphocytes # 2.6 (1.0-4.8) k/uL Monocytes # 0.7 (0-1.0) k/uL Eosinophils # 0.4 (0-0.7) k/uL Basophils # 0.1 (0-0.2) k/uL PT 10.5 (10.0-12.5) sec INR 0.9 (<1.2) APTT 26.2 (22.0-30.0) sec Sodium (137-145) mmol/L Potassium (3.5-5.1) mmol/L Chloride (98-107) mmol/L Carbon Dioxide (22-30) mmol/L Anion Gap mmol/L BUN (9-20) mg/dL Creatinine (0.66-1.25) mg/dL Est GFR (CKD-EPI)AfAm (>60 ml/min/1.73 sqM) Est GFR (CKD-EPI)NonAf (>60 ml/min/1.73 sqM) Glucose (74-99) mg/dL Calcium (8.4-10.2) mg/dL Total Bilirubin (0.2-1.3) mg/dL AST (17-59) U/L ALT (4-49) U/L Alkaline Phosphatase (38-126) U/L Total Protein (6.3-8.2) g/dL Albumin (3.5-5.0) g/dL Urine Color Yellow Urine Appearance Clear (Clear) Urine pH 6.0 (5.0-8.0) Ur Specific [place] 1.026 (1.001-1.035) Urine Protein Trace H (Negative) Urine Glucose (UA) Negative (Negative) Urine Ketones Negative (Negative) Urine Blood Large H (Negative) Urine Nitrite Negative (Negative) Urine Bilirubin Negative (Negative) Urine Urobilinogen <2.0 (<2.0) mg/dL Ur Leukocyte Esterase Negative (Negative) Urine RBC >182 H (0-5) /hpf Urine WBC 6 H (0-5) /hpf Calcium Oxalate Crystal Many H (None) /hpf Urine Mucus Occasional H (None) /hpf 03/28/24 Range/Units 05:09 WBC (3.8-10.6) k/uL RBC (4.30-5.90) m/uL Hgb (13.0-17.5) gm/dL Hct (39.0-53.0) % MCV (80.0-100.0) fL MCH (25.0-35.0) pg MCHC (31.0-37.0) g/dL RDW (11.5-15.5) % Plt Count (150-450) k/uL MPV Neutrophils % % Lymphocytes % % Monocytes % % Eosinophils % % Basophils % % Neutrophils # (1.3-7.7) k/uL Lymphocytes # (1.0-4.8) k/uL Monocytes # (0-1.0) k/uL Eosinophils # (0-0.7) k/uL Basophils # (0-0.2) k/uL PT (10.0-12.5) sec INR (<1.2) APTT (22.0-30.0) sec Sodium 135 L (137-145) mmol/L Potassium 4.5 (3.5-5.1) mmol/L Chloride 104 (98-107) mmol/L Carbon Dioxide 25 (22-30) mmol/L Anion Gap 6 mmol/L BUN 27 H (9-20) mg/dL Creatinine 1.16 (0.66-1.25) mg/dL Est GFR (CKD-EPI)AfAm 80 (>60 ml/min/1.73 sqM) Est GFR (CKD-EPI)NonAf 69 (>60 ml/min/1.73 sqM) Glucose 112 H (74-99) mg/dL Calcium 9.5 (8.4-10.2) mg/dL Total Bilirubin 0.4 (0.2-1.3) mg/dL AST 23 (17-59) U/L ALT 22 (4-49) U/L Alkaline Phosphatase 83 (38-126) U/L Total Protein 7.1 (6.3-8.2) g/dL Albumin 4.2 (3.5-5.0) g/dL Urine Color Urine Appearance (Clear) Urine pH (5.0-8.0) Ur Specific [place] (1.001-1.035) Urine Protein (Negative) Urine Glucose (UA) (Negative) Urine Ketones (Negative) Urine Blood (Negative) Urine Nitrite (Negative) Urine Bilirubin (Negative) Urine Urobilinogen (<2.0) mg/dL Ur Leukocyte Esterase (Negative) Urine RBC (0-5) /hpf Urine WBC (0-5) /hpf Calcium Oxalate Crystal (None) /hpf Urine Mucus (None) /hpf Disposition Clinical Impression: Ureterolithiasis Disposition: HOME SELF-CARE Condition: Good Instructions (If sedation given, give patient instructions): Kidney Stones (ED) Additional Instructions: Every disease is a spectrum and a small chance still exists that a serious condition could develop, for this reason, please monitor yourself closely for new, changing or worsening symptoms, symptoms that persist beyond [48 hours], confusion, [fever], inability to tolerate/keep down fluids or your medications, inability to follow up with outpatient providers as instructed and should you experience these symptoms or should you have any further concerns for your wellbeing please return to the ED or call 911 immediately. Your pain can be treated with ibuprofen and acetaminophen. You can take up to 400-600 mg of ibuprofen (Advil, Motrin) 3 times daily (every 8 hours) but can also use lower doses if this relieves your pain. Some people prefer naproxen (Aleve, Naprosyn) which can be taken in doses of 500 mg up to twice a day. Do not take both of these medicines together, and do not combine either with ketorolac (Toradol), meloxicam (Mobic), or indomethacin (Tivorbex). Some people can develop stomach discomfort with higher doses of either ibuprofen or naproxen, if this develops decrease your dose or stop taking it. If you need to take this dose daily for more than a week, please schedule an appointment for re-evaluation with your PCP. Please take these medications with food. You can take up to 1000 mg of acetaminophen (Tylenol) every 6 hours. Be careful as this is included in some medicines like Nyquil, [place], Percocet, Vicodin, STANBACK, Goody's Powders, and Excedrin. You can also use lidocaine patches for topical pain. You can purchase 4% patches over the counter at most drug stores. These can be helpful for pain from your muscles or bones. PLEASE call your primary care physician as soon as possible to arrange / discuss plan for followup appointment. Appointment in the next 1-3 days is strongly encouraged if possible. PLEASE let us know here before you leave if there is anything further we can do to be of any assistance. Take care and feel Better! Prescriptions: Tamsulosin [Flomax] 0.4 mg PO DAILY 5 Days #5 cap Ketorolac [Toradol] 10 mg PO Q12HR #15 tab Is patient prescribed a controlled substance at d/c from ED?: No Referrals: Ole Ellison DO [Primary Care Provider] - 1-2 days Chip Vargas MD [STAFF PHYSICIAN] - 1-2 days
[2024-03-28 08:01] VITALS: BP 122/71; PULSE 82; RESP 18
== END 2024-03-28 08:00 | disposition home or self-care (01) ==
LOC: EC 04:08
DX: N13.2 Hydronephrosis with renal and ureteral calculous obstruction (principal); F17.200 Nicotine dependence, unspecified, uncomplicated
CPT/HCPCS: 36415; 80053; 85025; 85610; 85730; 81001; 74176; 99284; 96374; 96375; 96361; J2270; J2405; J1885